=== PATIENT | male | born 1965 | race Caucasian/White ===

== ENCOUNTER 2022-07-25 12:41 | Inpatient (IN) | payer OTHER ==
[2022-07-25 13:17] LABS: Absolute Lymphocytes (CBC) 1.2 K/uL (0.7-4.9); Hematocrit 34.4 % (39.6-49.0); Lymphocytes % 17.1 % (15.3-44.8); MCV 95.2 fL (80-100); MPV 8.2 fL (7.6-11.3); RBC Red Blood Cell Count 3.61 M/uL (4.33-5.43)
--- NOTE | 2022-07-25 13:41 | RAD REPORT ---
EXAM DESCRIPTION: RAD - Chest Single View - 07/25/2022 1:27 pm CLINICAL HISTORY: tachycaradia, SOB Chest pain. COMPARISON: No comparisons FINDINGS: Portable technique limits examination quality. The lungs are grossly clear. The heart is normal in size. No displaced fractures.Sternotomy wires. IMPRESSION: No acute intrathoracic process suspected.
[2022-07-25 13:58] LABS: Potassium 3.7 mmol/L (3.5-5.1)
[2022-07-25 14:05] LABS: Troponin High Sensitivity 116.9 pg/mL (<58.9)
[2022-07-25 14:06] LABS: Magnesium 1.3 mg/dL (1.6-2.4)
[2022-07-25] MEDS ORDERED: ASPIRIN 325 MG TAB ONE (14:59)
--- NOTE | 2022-07-25 15:10 | RAD REPORT ---
EXAM DESCRIPTION: CT - Chest For Pe Angio - 07/25/2022 2:59 pm CLINICAL HISTORY: Chest pain. tachycardia, pos d dimer COMPARISON: No comparisons TECHNIQUE: CT angiogram of the pulmonary arteries was performed with MIP. All CT scans are performed using dose optimization technique as appropriate and may include automated exposure control or mA/KV adjustment according to patient size. FINDINGS: No evidence of pulmonary thromboembolism. No acute aortic finding demonstrated. The lungs are clear. No significant pericardial or pleural fluid. No concerning bony finding. Sternotomy wires. IMPRESSION: No evidence of pulmonary thromboembolism. No acute lung findings.
--- NOTE | 2022-07-25 15:41 | ER ---
Nurse's Notes [facility] Name: Marcial Ritter Jr Age: 57 yrs Sex: Male : 1965 Arrival Date: 07/25/2022 Time: 12:43 Bed 26 Private MD: Diagnosis: Tachycardia, unspecified;Lightheaded Presentation: 07/25 13:01 Chief complaint: Patient states: Blood pressure fluctuating, low systolic at 70. jl7 Coronavirus screen: Vaccine status: Patient reports receiving the 2nd dose of the covid vaccine. At this time, the client does not indicate any symptoms associated with coronavirus-19. Ebola Screen: No symptoms or risks identified at this time. Initial Sepsis Screen: Does the patient meet any 2 criteria? No. Patient's initial sepsis screen is negative. Does the patient have a suspected source of infection? No. Patient's initial sepsis screen is negative. Risk Assessment: Do you want to hurt yourself or someone else? Patient reports no desire to harm self or others. Onset of symptoms was July 20, 2022. 13:01 Method Of Arrival: Ambulatory [facility] 13:01 Acuity: ARMIN 3 jl7 Triage Assessment: 13:04 General: Appears in no apparent distress. uncomfortable, Behavior is calm, cooperative, jl7 appropriate for age. Pain: Denies pain. Respiratory: Reports shortness of breath Onset: The symptoms/episode began/occurred gradually, the patient has mild shortness of breath. Historical: - Allergies: 13:04 No Known Allergies; jl7 - PMHx: 13:04 Hypertensive disorder; jl7 - PSHx: 13:04 Coronary artery bypass graft; jl7 - Immunization history:: Client reports receiving the 2nd dose of the Covid vaccine. - Social history:: Smoking status: Patient reports the use of cigarette tobacco products, Patient uses alcohol, on a daily basis. Screenin:00 [facility] ED Fall Risk Assessment (Adult) History of falling in the last 3 months, bp including since admission No falls in past 3 months (0 pts). Abuse screen: Denies threats or abuse. Denies injuries from another. Nutritional screening: No deficits noted. Tuberculosis screening: No symptoms or risk factors identified. Assessment: 14:45 General: SEE TRIAGE NOTE. bp 15:04 Reassessment: PT RETURNED FROM CT. bp 16:28 Reassessment: ADMIT INITIATED. Cardiovascular: Rhythm is sinus rhythm. Respiratory: bp Airway is patent Respiratory effort is even, unlabored, Breath sounds are coarse bilaterally. Vital Signs: 13:01 BP 139 / 97; Pulse 113; Resp 19; Temp 97.8; Pulse Ox 100% ; Weight 80.74 kg; Height 6 bp ft. 2 in. (187.96 cm); Pain 0/10; 15:05 BP 158 / 100; Pulse 118; Resp 16; Pulse Ox 100% ; bp 16:28 BP 137 / 92; Pulse 98; Resp 16; Pulse Ox 100% ; bp 13:01 Body Mass Index 22.85 (80.74 kg, 187.96 cm) bp ED Course: 12:43 Patient arrived in ED. as 12:44 Juan F Santana DO is Attending Physician. ms3 13:04 Triage completed. jl7 13:04 Arm band placed on right wrist. jl7 13:15 Initial lab(s) drawn, by me, sent to lab. EKG done, by ED staff. Inserted saline lock: tm3 20 gauge in left antecubital area, using aseptic technique. 14:49 Eliel Verdin, RN is Primary Nurse. bp 15:00 Patient has correct armband on for positive identification. Bed in low position. Call bp light in reach. Side rails up X2. 15:28 Basic Metabolic Panel Sent. bp 15:28 CBC with Diff Sent. bp 15:28 Troponin HS Sent. bp 15:28 Magnesium Sent. bp 15:28 NT PRO-BNP Sent. bp 15:28 D-Dimer Sent. bp 15:28 CT Chest For PE Angio Sent. bp 15:28 XRAY Chest (1 view) Sent. bp 15:41 Breezy Silva MD is Hospitalizing Provider. ms3 17:23 COVID swab sent to lab. tm3 17:56 No provider procedures requiring assistance completed. Patient admitted, IV remains in bp place. 18:59 SARS-COV-2 Antigen Rapid Sent. jl7 19:22 Primary Nurse role handed off by Eliel Verdin, RN mw2 07/26 07:36 Eliel Verdin, RN is Primary Nurse. bp Administered Medications: 07/25 15:00 Drug: Aspirin 325 mg Route: PO; bp 16:27 Follow up: Response: No adverse reaction bp Medication: 17:56 VIS not applicable for this client. bp Outcome: 15:41 Decision to Hospitalize by Provider. ms3 17:56 Admitted to ER Hold. Please see [facility] for further documentation. bp 17:56 Condition: stable 17:56 Instructed on the need for admit. 07/26 18:50 Patient left the ED. bp Signatures: Isiah Marcelo tm3 Lise Rebollar Jahala RN RN jl7 Eliel Verdin RN RN bp Violeta Khan mw2 Juan F Santana DO DO ms3 Corrections: (The following items were deleted from the chart) 07/25 13:04 13:04 PMHx: Diabetes mellitus; jl7 jl7 15:03 14:30 General: SEE TRIAGE NOTE. bp bp 15:04 15:00 General: SEE TRIAGE NOTE. bp bp 07/26 17:08 07/25 13:01 BP 139 / 97; Pulse 113bpm; Resp 19bpm; Pulse Ox 100%; Temp 97.8F; 80.74 kg; bp Height 6 ft. 2 in.; BMI: 22.8; Pain 0/10; jl7
--- NOTE | 2022-07-25 15:41 | EDPHYS ---
Physician Documentation [facility] Name: Marcial Rittre Jr Age: 57 yrs Sex: Male : 1965 Arrival Date: 07/25/2022 Time: 12:43 Bed 26 Private MD: ED Physician Juna F Santana HPI: 07/25 13:01 This 57 yrs old Male presents to ER via Unassigned with complaints of Shortness Of ms3 Breath, Irregular Pulse, Blood Pressure Problem. 13:01 57-year-old male with past medical history of coronary artery disease, hypertension, ms3 hyperlipidemia presents for hypotension and tachycardia. Patient states last week he noticed blood pressure to be 77/53 while he was off of his blood pressure medications. Patient states yesterday and today he noticed his heart rate to be greater than 110. Patient endorses shortness of breath, nausea, vomiting. Patient states when standing he becomes lightheaded. Patient denies pain. Patient denies alleviating factors. Historical: - Allergies: 13:04 No Known Allergies; jl7 - PMHx: 13:04 Hypertensive disorder; jl7 - PSHx: 13:04 Coronary artery bypass graft; jl7 - Immunization history:: Client reports receiving the 2nd dose of the Covid vaccine. - Social history:: Smoking status: Patient reports the use of cigarette tobacco products, Patient uses alcohol, on a daily basis. ROS: 13:02 Constitutional: Negative for fever, and chills. Neck: Negative for injury, pain, and ms3 swelling, Cardiovascular: Negative for chest pain, and palpitations. 13:02 Skin: Negative for injury, rash, and discoloration. 13:02 Respiratory: Positive for shortness of breath. 13:02 All other systems are negative. Exam: 13:02 Constitutional: This is a well developed, well nourished patient who is awake, alert, ms3 and in no acute distress. Head/Face: Normocephalic, atraumatic. Neck: Trachea midline, no cervical lymphadenopathy. Supple, full range of motion without nuchal rigidity, or vertebral point tenderness. No Meningismus. Chest/axilla: Normal chest wall appearance and motion. Nontender with no deformity. Respiratory: Lungs have equal breath sounds bilaterally, clear to auscultation and percussion. No rales, rhonchi or wheezes noted. No increased work of breathing, no retractions or nasal flaring. Skin: Warm, dry with normal turgor. Normal color with no rashes, no lesions, and no evidence of cellulitis. MS/ Extremity: Pulses equal, no cyanosis. Neurovascular intact. Full, normal range of motion. 13:02 Cardiovascular: Rate: tachycardic, Rhythm: regular, Pulses: no pulse deficits are appreciated, Heart sounds: normal. 15:32 ECG was reviewed by the Attending Physician. ms3 Vital Signs: 13:01 BP 139 / 97; Pulse 113; Resp 19; Temp 97.8; Pulse Ox 100% ; Weight 80.74 kg; Height 6 bp ft. 2 in. (187.96 cm); Pain 0/10; 15:05 BP 158 / 100; Pulse 118; Resp 16; Pulse Ox 100% ; bp 16:28 BP 137 / 92; Pulse 98; Resp 16; Pulse Ox 100% ; bp 13:01 Body Mass Index 22.85 (80.74 kg, 187.96 cm) bp MDM: 12:52 Patient medically screened. ms3 13:02 Differential diagnosis: Anemia CHF exacerbation, Myocardial Infarction pneumonia, ms3 Pulmonary Embolism. 14:26 Management of patient was discussed with the following: Power Press Supervisor: Discussed with Dr herminio Mckeon. Does not want heparin at this time. Would like Troponins trended.. 16:27 Data reviewed: vital signs, nurses notes, lab test result(s), EKG, radiologic studies, ms3 and as a result, I will admit patient. Consideration of Admission/Observation Patient was admitted/placed on observation. Independent interpretation of the following test(s) in the Emergency Department EKG: See my EKG interpretation above manager monitoring: rate is 108 beats/min, Rhythm is normal sinus rhythm, regular, with no ectopy, Interpretation: normal rhythm, tachycardia. Counseling: I had a detailed discussion with the patient and/or guardian regarding: the historical points, exam findings, and any diagnostic results supporting the discharge/admit diagnosis, lab results, radiology results, the need for further work-up and treatment in the hospital. ED course: Discussed case with Dr. Silva and he accepts patient as inpatient. All questions were answered. Discussed plan for admission with patient he understands and agrees with plan. 07/25 12:51 Order name: Basic Metabolic Panel ms3 07/25 12:51 Order name: CBC with Diff ms3 07/25 12:51 Order name: D-Dimer ms3 07/25 12:51 Order name: Magnesium ms3 07/25 12:51 Order name: NT PRO-BNP ms3 07/25 12:51 Order name: Troponin HS ms3 07/25 13:17 Order name: CBC with Automated Diff; Complete Time: 15:38 EDMS 07/25 13:22 Order name: D-Dimer; Complete Time: 15:38 EDMS 07/25 14:06 Order name: Basic Metabolic Panel; Complete Time: 15:38 EDMS 07/25 14:06 Order name: Troponin High Sensitivity; Complete Time: 15:38 EDMS 07/25 14:06 Order name: NT PRO-BNP; Complete Time: 15:38 EDMS 07/25 14:06 Order name: Magnesium; Complete Time: 15:38 EDMS 07/25 16:34 Order name: SARS-COV-2 Antigen Rapid bd 07/25 17:55 Order name: SARS-COV-2 Antigen Rapid; Complete Time: 17:58 EDMS 07/25 19:36 Order name: Troponin High Sensitivity EDMS 07/25 19:41 Order name: Protime (+INR) EDMS 07/25 19:48 Order name: Phosphorus EDMS 07/25 19:48 Order name: Creatine Phosphokinase EDMS 07/25 19:48 Order name: Lipid Profile EDMS 07/25 19:48 Order name: T4 Free EDMS 07/25 19:48 Order name: Magnesium EDMS 07/25 19:48 Order name: Thyroid Stimulating Hormone EDMS 07/25 21:05 Order name: Hemoglobin A1c EDMS 07/26 01:26 Order name: Troponin High Sensitivity EDMS 07/26 03:02 Order name: CBC with Automated Diff EDMS 07/26 03:12 Order name: Basic Metabolic Panel EDMS 07/26 03:12 Order name: Uric Acid EDMS 07/26 03:12 Order name: Magnesium EDMS 07/26 03:20 Order name: Osmolality, Serum EDMS 07/26 03:21 Order name: Cortisol EDMS 07/25 12:51 Order name: XRAY Chest (1 view) ms3 07/25 12:51 Order name: EKG; Complete Time: 12:52 ms3 07/25 12:51 Order name: Cardiac monitoring; Complete Time: 13:25 ms3 07/25 12:51 Order name: EKG - Nurse/Tech; Complete Time: 13:25 ms3 07/25 12:51 Order name: IV Saline Lock; Complete Time: 13:25 ms3 07/25 12:51 Order name: Labs collected and sent; Complete Time: 13:25 ms3 07/25 12:51 Order name: O2 Per Protocol; Complete Time: 14:50 ms3 07/25 12:52 Order name: O2 Sat Monitoring; Complete Time: 14:50 ms3 07/25 13:42 Order name: RAD; Complete Time: 15:38 EDMS 07/25 14:26 Order name: CT Chest For PE Angio ms3 07/25 15:10 Order name: CT; Complete Time: 15:38 EDMS EC:32 Rate is 105 beats/min. Rhythm is regular. QRS Rolfe is Normal. VA interval is normal. ms3 QRS interval is normal. Clinical impression: NSR w/ Non-specific ST/T Changes. Interpreted by me. Reviewed by me. Administered Medications: 15:00 Drug: Aspirin 325 mg Route: PO; bp 16:27 Follow up: Response: No adverse reaction bp Disposition Summary: 07/25/22 15:41 Hospitalization Ordered Hospitalization Status: Inpatient Admission ms3 Provider: Breezy Silva ms3 Condition: Stable ms3 Problem: new ms3 Symptoms: are unchanged ms3 Bed/Room Type: Standard ms3 Location: Telemetry/MedSurg (Inpatient)(07/26/22 17:43) bd Room Assignment: 219(07/26/22 17:43) bd Diagnosis - Tachycardia, unspecified ms3 - Lightheaded ms3 Forms: - Medication Reconciliation Form ms3 - SBAR form ms3 Signatures: Dispatcher [employer] EDMS Madeleine Lopez Jahala, RN RN jl7 Eliel Verdin, RN RN bp Juan F Santana DO DO ms3 Corrections: (The following items were deleted from the chart) 13:04 13:04 PMHx: Diabetes mellitus; jl7 jl7 15:35 13:44 ECG was reviewed by the Attending Physician. ms3 ms3 15:35 13:44 Rate is 114 beats/min. Rhythm is regular. QRS Rolfe is Normal. VA interval is ms3 normal. QRS interval is normal. Clinical impression: NSR w/ Non-specific ST/T Changes. Interpreted by me. Reviewed by me. ms3 17: 15:41 Telemetry/MedSurg (Inpatient) ms3 bp 17: 15:41 ms3 bp 07/26 17:43 07/25 17:29 [facility] ER HOLD bp bd 07/26 17:43 07/25 17:29 ERHOLD- bp bd
[2022-07-25] MEDS ORDERED: ACETAMINOPHEN 325 MG TABLET PO PRN (16:31)
[2022-07-25] MEDS ORDERED: ONDANSETRON 4 MG/2 ML VIAL IV PRN (16:35)
--- NOTE | 2022-07-25 16:38 | P.HP ---
Certification for Inpatient Patient admitted to: Observation With expected LOS: <2 Midnights Patient will require the following post-hospital care: None Practitioner: I am a practitioner with admitting privileges, knowledge of patient current condition, hospital course, and medical plan of care. Services: Services provided to patient in accordance with Admission requirements found in Title 42 Section 412.3 of the Code of Federal Regulations Patient History Date of Service: 07/25/22 Reason for admission: Tachycardia and palpitations. History of Present Illness: Patient is a 57-year-old male with a past medical history significant for hypertension, CABG, alcohol abuse, nicotine dependence, HLD who presents with complaint of hypotension and tachycardia. Patient reported that his blood pressure has been unstable and last week systolic blood pressure dropped into the 70s. Patient reported associated signs and symptoms of palpitation, lig htheadedness, cough, poor appetite and shortness of breath. Patient denies any other signs and symptoms. Symptoms are aggravated or relieved by nothing. Patient decided to present to the hospital for medical evaluation. Allergies No Known Allergies Allergy (Unverified 07/25/22 18:33) Home Medications: Amlodipine [Norvasc] 10 mg PO DAILY 07/25/22 Apixaban [Eliquis] 5 mg PO DAILY 07/25/22 Aspirin [Aspirin EC 81 MG] 81 mg PO DAILY 07/25/22 hydroCHLOROthiazide [Hydrochlorothiazide] 25 mg PO DAILY 07/25/22 lisinopriL [Lisinopril] 10 mg PO DAILY 07/25/22 - Past Medical/Surgical History -: HTN -: Nicotine dependence -: HLD -: Alcohol abuse -: CABG - Family History Family History: Reviewed- Non-Contributory - Social History Smoking Status: Current every day smoker Counseled patient to stop smoking for: less than 10 minutes Smoking therapy provided: Yes Patient receptive to therapy: Yes Alcohol use: Yes CD- Drugs: No Caffeine use: Yes Place of Residence: Home Review of Systems General: Other (Poor appetite) Eyes: Unremarkable ENT: Unremarkable Respiratory: Cough, Shortness of Breath Cardiovascular: Palpitations, Light Headedness, Other (Elevated heart rate) Gastrointestinal: Unremarkable Genitourinary: Unremarkable Musculoskeletal: Unremarkable Integumentary: Unremarkable Neurological: Other (Lightheadedness) Lymphatics: Unremarkable Physical Examination - Physical Exam General: Alert, In no apparent distress, Oriented x3, Cooperative HEENT: Atraumatic, PERRLA, Mucous membr. moist/pink, EOMI, Sclerae nonicteric Neck: Supple, 2+ carotid pulse no bruit, No LAD, Without JVD or thyroid abnormality Respiratory: Clear to auscultation bilaterally, Normal air movement Cardiovascular: No edema, Regular rate/rhythm, Normal S1 S2 Capillary refill: <2 Seconds Gastrointestinal: Normal bowel sounds, Soft and benign, No tenderness Musculoskeletal: No clubbing, No swelling, No contractures, No tenderness Integumentary: No rashes, No significant lesion, No tenderness/swelling Neurological: Normal speech, Normal tone, Normal affect Lymphatics: No axilla or inguinal lymphadenopathy - Studies Laboratory Data (last 24 hrs) 07/25/22 13:05: WBC 7.20, Hgb 12.0 L, Hct 34.4 L, Plt Count 170 07/25/22 13:05: Sodium 125 L, Potassium 3.7, BUN 35 H, Creatinine 2.61 H, Glucose 162 H, Magnesium 1.3 L* Assessment and Plan - Plan --Tachycardia\palpitations. Echocardiogram to assess cardiac functions and structures. Telemetry to monitor for any significant arrhythmia. Cardiology consulted. Further management per product engineer. --Elevated troponin. Will trend troponin levels. Echocardiogram pending. Telemetry to monitor for any significant arrhythmia. Further management per product engineer. --History of CABG. Continue aspirin and statin. --HLD. Continue statin. --Nicotine dependence. Patient counseled on tobacco cessation. Refuses nicotine patch. -- Alcohol abuse. Patient denies withdrawal symptoms when he does not drink. Alcohol withdrawal assessment protocol. --CKD 4. Baseline functions unknown. Nephrology consulted. Will await further recommendation. --Hyponatremia. Likely secondary to alcohol abuse. Human Resources Benefits Manager on board. Further management per tire repairer. -- Elevated D-dimer. CT PE protocol negative for PE. Continue supportive care. --- Hypomagnesemia. Replete as needed. -- Anemia of chronic disease. H&H stable. We will continue to monitor hemoglobin and transfuse if less than 7.0. --Hypertension. Stable. Continue home medications -- DVT prophylaxis with Lovenox subQ. Discharge Plan: Home Plan to discharge in: 48 Hours - Advance Directives Does patient have a Living Will: No Does patient have a Durable POA for Healthcare: No - Code Status/Comfort Care Code Status Assessed: Yes Physician Review: Patient Assessed, Agree with Above Assessment and Plan Critical Care: No
[2022-07-25] MEDS ORDERED: LABETALOL 20 MG/4ML SYRINGE IV PRN (16:39)
[2022-07-25] MEDS: ENOXAPARIN 40 MG/0.4 ML SQ SCH (17:00)
[2022-07-25 17:55] LABS: SARS-CoV-2 Antigen Rapid Res Negative (Negative)
[2022-07-25] MEDS: ASPIRIN 81 MG CHEWABLE TABLET PO SCH (18:00)
[2022-07-25 18:07] VITALS: BMI 22.8
[2022-07-25] MEDS ORDERED: ENOXAPARIN 40 MG/0.4 ML SQ ONE (18:31)
[2022-07-25 19:41] LABS: Protime INR 1.21
[2022-07-25 19:46] LABS: Phosphorus 2.7 mg/dL (2.5-4.9); Thyroid Stimulating Hormone 2.28 uIU/mL (0.358-3.740)
[2022-07-25 19:48] LABS: Magnesium 1.4 mg/dL (1.6-2.4)
[2022-07-25] MEDS ORDERED: MAGNESIUM SULFATE 1 gm IVPB 1 GM/100 ML BAG IV ONE ×2 (19:53→22:03)
[2022-07-25] MEDS: SODIUM CHLORIDE 1 GM TAB PO SCH ×2 (20:40→21:40)
[2022-07-25] MEDS: ATORVASTATIN 40 MG TAB PO SCH (21:00)
[2022-07-25] MEDS: FOLIC ACID 1 MG TABLET PO SCH (21:00)
[2022-07-25] MEDS: THIAMINE HCL 100 MG TABLET PO SCH (21:00)
[2022-07-25] MEDS ORDERED: FOLIC ACID 1 MG TABLET ONE (22:03)
[2022-07-25] MEDS ORDERED: ATORVASTATIN 20 MG TAB ONE (23:47)
[2022-07-26] MEDS ORDERED: THIAMINE HCL 100 MG TABLET ONE ×2 (00:32→10:20)
[2022-07-26 03:01] LABS: Absolute Lymphocytes (CBC) 1.2 K/uL (0.7-4.9); Hematocrit 32.8 % (39.6-49.0); Lymphocytes % 21.6 % (15.3-44.8); MCV 95.4 fL (80-100); MPV 8.2 fL (7.6-11.3); RBC Red Blood Cell Count 3.44 M/uL (4.33-5.43)
[2022-07-26 03:11] LABS: Magnesium 1.9 mg/dL (1.6-2.4); Potassium 3.6 mmol/L (3.5-5.1); Uric Acid 9.7 mg/dL (3.5-7.2)
[2022-07-26] MEDS: THIAMINE HCL 100 MG TABLET PO SCH ×2 (09:00→21:17)
[2022-07-26] MEDS: ENOXAPARIN 40 MG/0.4 ML SQ SCH (09:00)
[2022-07-26] MEDS ORDERED: SODIUM CHLORIDE 1 GM TAB PO SCH (09:00)
[2022-07-26] MEDS: ASPIRIN 81 MG CHEWABLE TABLET PO SCH (09:00)
[2022-07-26] MEDS: FOLIC ACID 1 MG TABLET PO SCH ×2 (09:00→21:17)
[2022-07-26] MEDS ORDERED: AMLODIPINE 10 MG TAB PO SCH (09:00)
[2022-07-26] MEDS: NA CHLORIDE 0.9% 1,000 ML IV SCH ×2 (09:00→19:00)
--- NOTE | 2022-07-26 10:04 | P.CNS ---
Date of Consult: 07/26/22 Reason for Consult: PRAVEEN, hyponatremia Requesting Physician: Rishabh Joyce Chief Complaint: Tachycardia and palpitations. History of Present Illness: Patient is a 57-year-old male with a past medical history significant for hypertension on several medications, CABG, nicotine dependence and HLD who presented with complaints of recurrent low BP and pre-syncopal episodes over the past week. Pt has had palpitations, lightheadedness and other. He and his have had a recent cold with cough, poor appetite and some nasal drainage. Pt on admission showed evidence of PRAVEEN, hyponatemia, hypomagnesemia and other. Pt feels better now post IVF hydration and denies any further orthostatic symptoms or other. Allergies No Known Allergies Allergy (Unverified 07/25/22 18:33) Home Medications: Amlodipine [Norvasc] 10 mg PO DAILY 07/25/22 Apixaban [Eliquis] 5 mg PO DAILY 07/25/22 Aspirin [Aspirin EC 81 MG] 81 mg PO DAILY 07/25/22 hydroCHLOROthiazide [Hydrochlorothiazide] 25 mg PO DAILY 07/25/22 lisinopriL [Lisinopril] 10 mg PO DAILY 07/25/22 - Past Medical/Surgical History Diabetic: No -: HTN -: Nicotine dependence -: HLD -: Alcohol abuse -: CABG - Social History Alcohol use: Yes CD- Drugs: No Caffeine use: Yes Place of Residence: Home Review of Systems General: As per HPI Eyes: Unremarkable ENT: Nose Discharge Respiratory: Cough, As per HPI Cardiovascular: Light Headedness, As per HPI Gastrointestinal: Unremarkable Genitourinary: Unremarkable Musculoskeletal: Unremarkable Integumentary: Unremarkable Neurological: Unremarkable Lymphatics: Unremarkable Physical Examination Temp Pulse Resp BP Pulse Ox 98.9 F 90 13 101/64 100 07/26/22 04:00 07/26/22 08:00 07/26/22 08:00 07/26/22 08:00 07/26/22 08:00 General: Alert, In no apparent distress, Oriented x3 HEENT: Atraumatic, Normocephalic Neck: Supple Respiratory: Clear to auscultation bilaterally, Normal air movement Cardiovascular: No edema, Regular rate/rhythm, Normal S1 S2 Gastrointestinal: Soft and benign, Non-distended, No tenderness Musculoskeletal: No clubbing, No swelling Integumentary: No rashes, No breakdown Neurological: Normal speech, Normal tone, Normal affect Laboratory Data (last 24 hrs) 07/25/22 13:05: WBC 7.20, Hgb 12.0 L, Hct 34.4 L, Plt Count 170 07/25/22 13:05: Sodium 125 L, Potassium 3.7, BUN 35 H, Creatinine 2.61 H, Glucose 162 H, Magnesium 1.3 L* Conclusions/Impression: A/P) 1. Stage II PRAVEEN in the setting of pre-renal state, hypotension, concurrent ACEi/thiazide diuretic use, other -Cr level downward trending post hydration. Urine studies pending. Cont to hold Lisinopril and HCTZ both during admission and on discharge 2. Hypovolemic hyponatremia in the setting of volume depletion, thiazide diuretic use and reduced PO intake -Na level higher on isotonic IVF, cont hydration 3. Hypotension related to meds and hypovolemia -cont hydration with NS IVF. Hold ACEi and thiazide diuretic on discharge, lower CCB and give pt holding parameter, have pt monitor BP closely at home and meds can be resumed as indicated over the following weeks 4. NSTEMI, mild troponin leak, downward trending -hx of atherosclerosis of [place] coronary arteries without reports of anginal pectoris, w/u and plan per Cardiology Jonas Weiss MD, CARROL
[2022-07-26] MEDS ORDERED: FOLIC ACID 1 MG TABLET ONE (10:20)
[2022-07-26] MEDS ORDERED: ASPIRIN EC 81 MG TAB PO ONE (10:20)
[2022-07-26] MEDS ORDERED: ENOXAPARIN 40 MG/0.4 ML SQ ONE (10:21)
[2022-07-26] MEDS ORDERED: AMLODIPINE 10 MG TAB ONE (10:21)
[2022-07-26] MEDS ORDERED: NA CHLORIDE 0.9% 1,000 ML ONE (10:21)
--- NOTE | 2022-07-26 13:00 | EKG ---
Test Date: 2022-07-25 Test Time: 13:14:14 Contract Technical Writer: TM MEASUREMENT RESULTS: Intervals: Rate: 114 KS: 162 QRSD: 98 QT: 328 QTc: 452 Henry: P: 82 KS: 162 QRS: 56 T: 215 INTERPRETIVE STATEMENTS: Sinus tachycardia Inferior infarct, age undetermined ST & T wave abnormality, consider anterolateral ischemia Abnormal ECG No previous ECG available for comparison Electronically Signed On 07-26-22 12:58:36 AUTO EMISSIONS TECHNICIAN by Aly Mckeon
--- NOTE | 2022-07-26 16:02 | P.PN ---
Date of Service: 07/26/22 Subjective: continues with palpitations, no significant improvement of symptoms renal function and hyponatremia improved no chest pain ROS: 10 point ROS as noted above, otherwise negative Physical exam GEN: Alert, oriented, NAD HEENT: Normal conjunctiva, sclera anicteric CV: tachycardia, irregular , no edema Pulm: Non-labored respirations on room air ABD: Soft, nontender, nondistended Neuro: Normal speech, normal affect Problem List Palpitations/tachycardia NSTEMI CAD s/p CABG h/o afib, s/p ablation Nicotine dependence, alcohol dependence PRAVEEN on CKD3 Hyponatremia Hypertension Continues with palpitations Heart rate [id number] h/o afib s/p ablation elevated troponin, likely demand ischemia Cardiology consulted hyponatremia PRAVEEN suspect secondary to medications and pre-renal pt with several days of decreased PO intake dc HTCTZ and lisinopril received IV contrast from CTA repeat labs in AM nephrology consulted IV started VTE: home eliquis Code: full Dispo: home, tomorrow if improved renal function / heart rate / blood pressure
[2022-07-26] MEDS: ATORVASTATIN 40 MG TAB PO SCH (21:17)
[2022-07-27] MEDS: NA CHLORIDE 0.9% 1,000 ML IV SCH ×2 (02:04→05:00)
[2022-07-27 03:50] LABS: Magnesium 1.7 mg/dL (1.6-2.4); Phosphorus 2.7 mg/dL (2.5-4.9); Potassium 3.6 mmol/L (3.5-5.1)
[2022-07-27] MEDS ORDERED: MAGNESIUM SULFATE 1 gm IVPB 1 GM/100 ML BAG IV ONE (04:05)
--- NOTE | 2022-07-27 07:52 | EKG ---
Test Date: 2022-07-25 Test Time: 14:52:52 Energy Efficiency Engineer: NAYLA MEASUREMENT RESULTS: Intervals: Rate: 105 AL: 170 QRSD: 92 QT: 368 QTc: 486 [place]: P: 75 AL: 170 QRS: 69 T: 189 INTERPRETIVE STATEMENTS: Sinus tachycardia with premature atrial complexes with aberrant conduction Cannot rule out Inferior infarct, age undetermined ST & T wave abnormality, consider lateral ischemia Abnormal ECG Compared to ECG 07/25/2022 13:14:14 Atrial premature complex(es) now present Aberrant conduction of supraventricular beat(s) now present Myocardial infarct finding still present ST (T wave) deviation still present Possible ischemia still present Electronically Signed On 07-27-22 07:51:06 DRIVER MATERIAL HANDLER by Aly Mckeon
[2022-07-27 08:28] VITALS: BP 124/93; TEMP 98.1
[2022-07-27] MEDS: THIAMINE HCL 100 MG TABLET PO SCH (08:31)
[2022-07-27] MEDS: FOLIC ACID 1 MG TABLET PO SCH (08:31)
[2022-07-27] MEDS: ASPIRIN 81 MG CHEWABLE TABLET PO SCH (08:31)
[2022-07-27] MEDS: ENOXAPARIN 40 MG/0.4 ML SQ SCH (08:32)
[2022-07-27] MEDS ORDERED: POTASSIUM CL SA 10 MEQ TAB PO ONE (09:00)
[2022-07-27] MEDS ORDERED: AMLODIPINE 5 MG TAB PO SCH (09:00)
[2022-07-27] MEDS ORDERED: METOPROLOL TAR 25 MG TAB PO ONE (09:00)
[2022-07-27 09:46] VITALS: O2SAT 100
--- NOTE | 2022-07-27 22:46 | P.DS ---
Admission Date: 07/25/22 Discharge Date: 07/27/22 Disposition: ROUTINE DISCHARGE Discharge Condition: GOOD Reason for Admission: Tachycardia and palpitations. Consultations: Cardiology - Dr. Mckeon Nephrology - Dr. Weiss Brief History of Present Illness: 57yo M, PMH: HTN, CABG, alcohol abuse, nictoine dependence, HLD. Presented with hypotension and tachycardia. Patient reported that his blood pressure has been unstable and last week systolic blood pressure dropped into the 70s. Patient reported associated signs and symptoms of palpitation, lightheadedness, cough, poor appetite and shortness of breath. Patient denies any other signs and symptoms. Hospital Course: Problem List Palpitations/tachycardia NSTEMI, demand ischemia PRAVEEN on CKD3, secodnaryt o prerenal / hypovolemia CAD s/p CABG h/o afib, s/p ablation Nicotine dependence, alcohol dependence Hyponatremia Hypertension Patient presented with palpitations, low blood pressure. Found to be dehydrated with acute kidney injury. His symptoms and bloodwork /renal function improved with IV hydration. His blood pressure remained in normal range on 5mg norvasc (decreased from home 10mg). Lisinopril and HCTZ were discontinued. Patient had a 4 minute run of SVT, asymptomatic, overnight. Discussed with Dr. Mckeon, stable for discharge home. Patient to be started on metoprolol 25mg BID Follow up: Dr. Weiss - next week, call his office to confirm appointment Dr. Mckeon, in ~2 weeks. Vital Signs/Physical Exam: Temp Pulse Resp BP Pulse Ox 98.1 F 87 14 124/93 H 100 07/27/22 08:00 07/27/22 09:41 07/27/22 08:00 07/27/22 09:41 07/27/22 08:00 General: Alert, In no apparent distress, Oriented x3 HEENT: EOMI, Sclerae nonicteric Neck: Supple, No LAD Respiratory: Clear to auscultation bilaterally, Normal air movement Cardiovascular: No edema, Regular rate/rhythm Gastrointestinal: Soft and benign, No tenderness Musculoskeletal: No contractures, No tenderness Integumentary: No significant lesion, No tenderness/swelling Neurological: Normal speech, Normal strength at 5/5 x4 extr, Normal affect Laboratory Data at Discharge: WBC 5.60 K/uL (4.3-10.9) 07/26/22 02:33 Hgb 11.6 g/dL (13.6-17.9) L 07/26/22 02:33 Hct 32.8 % (39.6-49.0) L 07/26/22 02:33 Plt Count 156 K/uL (152-406) 07/26/22 02:33 PT 13.3 SECONDS (9.5-12.5) H 07/25/22 18:56 INR 1.21 07/25/22 18:56 Sodium 132 mmol/L (136-145) L 07/27/22 02:27 Potassium 3.6 mmol/L (3.5-5.1) 07/27/22 02:27 BUN 31 mg/dL (7-18) H 07/27/22 02:27 Creatinine 1.66 mg/dL (0.70-1.30) H 07/27/22 02:27 Glucose 117 mg/dL (74-106) H 07/27/22 02:27 Uric Acid 9.7 mg/dL (3.5-7.2) H 07/26/22 02:33 Phosphorus 2.7 mg/dL (2.5-4.9) 07/27/22 02:27 Magnesium 1.7 mg/dL (1.6-2.4) 07/27/22 02:27 Triglycerides 67 mg/dL (<150) 07/25/22 18:56 Cholesterol 170 mg/dL (<200) 07/25/22 18:56 HDL Cholesterol 71 mg/dL (40-60) H 07/25/22 18:56 Cholesterol/HDL Ratio 2.39 07/25/22 18:56 Home Medications: Apixaban [Eliquis] 5 mg PO DAILY 07/25/22 Aspirin [Aspirin EC 81 MG] 81 mg PO DAILY 07/25/22 Amlodipine [Norvasc*] 5 mg PO DAILY 30 Days #30 tab 07/27/22 Metoprolol Tartrate [Lopressor] 25 mg PO BID 30 Days #60 tab 07/27/22 New Medications: Metoprolol Tartrate [Lopressor] 25 mg PO BID 30 Days #60 tab Amlodipine [Norvasc*] 5 mg PO DAILY 30 Days #30 tab Physician Discharge Instructions: Patient presented with palpitations, low blood pressure. Found to be dehydrated with acute kidney injury. His symptoms and bloodwork /renal function improved with IV hydration. His blood pressure remained in normal range on 5mg norvasc (decreased from home 10mg). Lisinopril and HCTZ were discontinued. Patient had a 4 minute run of SVT, asymptomatic, overnight. Discussed with tawnya Barajas for discharge home. Patient to be started on metoprolol 25mg BID Follow up: Dr. Weiss - next week, call his office to confirm appointment Dr. Mckeon, in ~2 weeks. Followup: Jonas Weiss [ACTIVE - CAN ADMIT] - (Call to schedule appointment. ) Aly Mcekon MD [Primary Care Provider] - (Call to schedule appointment. ) Time spent managing pt's care (in minutes): 45
== END 2022-07-27 10:34 | disposition home or self-care (01) | DRG 682 ==
LOC: ER 12:41 → ERHOLD 16:28 → 2ND 07-26 18:23
PROVIDERS: ADMIT Hospitalist; ATTEND Hospitalist
DX: N17.9 Acute kidney failure, unspecified (principal); I21.A1 Myocardial infarction type 2; E87.1 Hypo-osmolality and hyponatremia; I12.9 Hypertensive chronic kidney disease with stage 1 through stage 4 chronic kidney disease, or unspecified chronic kidney disease; N18.30 Chronic kidney disease, stage 3 unspecified; E78.5 Hyperlipidemia, unspecified; E83.42 Hypomagnesemia; D63.8 Anemia in other chronic diseases classified elsewhere; I25.10 Atherosclerotic heart disease of native coronary artery without angina pectoris; F10.20 Alcohol dependence, uncomplicated; F17.210 Nicotine dependence, cigarettes, uncomplicated; R79.89 Other specified abnormal findings of blood chemistry; R77.8 Other specified abnormalities of plasma proteins; Z95.1 Presence of aortocoronary bypass graft; Z79.82 Long term (current) use of aspirin; Z79.01 Long term (current) use of anticoagulants; Z79.899 Other long term (current) drug therapy; Z20.822 Contact with and (suspected) exposure to COVID-19
CPT/HCPCS: 36415; 71045; 71275; 80048; 80061; 82533; 82550; 83036; 83735; 83880; 83930; 84100; 84439; 84443; 84484; 84550; 85025; 85379; 85610; 87811; 93005; 99285; J1650; J3475; J7030; Q9967

== ENCOUNTER → 2023-02-08 | Day surgery (SDC) | payer OTHER ==
[~2023-02-08] MED LIST: ATROPINE SULF 1 MG/10 ML SYR IV ONE; LIDOCAINE 2% MPF 5 ML VIAL ONE; METOPROLOL TARTRATE 5 MG/5 ML INJ IV ONE; NA CHLORIDE 0.9% 500 ML ONE; propofoL 200 MG/20 ML VIAL IV ONE
[2023-02-08 07:39] VITALS: BP 136/96; TEMP 98.1; O2SAT 100
--- NOTE | 2023-02-08 12:49 | OP ---
Date of Procedure: 02/08/2023 Surgeon: TODD MACEDO Procedures Performed: 1.Transesophageal echocardiogram. 2.Electrical cardioversion. Diagnosis: Atrial fibrillation. Description Of Procedure: After risks, benefits, alternatives were explained, patient agreed to proc edure and signed informed consent. Patient was brought into the OR room 5, and after proper time-out , the back of the throat was numbed using viscous lidocaine and then Anesthesia was in room and admin istered propofol and the patient was deeply sedated, then a MODESTA probe was inserted without difficulty . No left atrial appendage thrombus was seen. MODESTA probe was removed. Then a synchronized 200 joule s electrical cardioversion was performed successfully converting the rhythm into normal sinus rhythm. Conclusion: Successful MODESTA-guided electrical cardioversion. SR/FARIDAL Voice ID: [id number] Report ID: [id number]
--- NOTE | 2023-02-09 15:25 | EKG ---
Test Date: 2023-02-08 Test Time: 08:37:40 Pv Installer Tech: MEASUREMENT RESULTS: Intervals: Rate: 50 MS: 180 QRSD: 104 QT: 442 QTc: 402 [place]: P: 49 MS: 180 QRS: 18 T: 84 INTERPRETIVE STATEMENTS: Sinus bradycardia Nonspecific T wave abnormality Abnormal ECG Compared to ECG 02/05/2023 13:08:04 T-wave abnormality now present Atrial fibrillation no longer present ST (T wave) deviation no longer present Possible ischemia no longer present Electronically Signed On 02-09-23 15:21:59 CDT by Aly Mckeon
== END ==
LOC: CCL 07:00
PROVIDERS: ATTEND Internal Medicine
DX: I48.91 Unspecified atrial fibrillation (principal); I25.10 Atherosclerotic heart disease of native coronary artery without angina pectoris; I65.29 Occlusion and stenosis of unspecified carotid artery; I70.203 Unspecified atherosclerosis of native arteries of extremities, bilateral legs; I10 Essential (primary) hypertension; E78.5 Hyperlipidemia, unspecified; F17.210 Nicotine dependence, cigarettes, uncomplicated; Z79.899 Other long term (current) drug therapy; Z79.01 Long term (current) use of anticoagulants; Z82.49 Family history of ischemic heart disease and other diseases of the circulatory system
CPT/HCPCS: 93005; 93312; 92960; J2704; J2001; J7040; J0461

== ENCOUNTER 2023-06-18 11:06 | Inpatient (IN) | payer OTHER ==
[2023-06-18 13:15] LABS: Absolute Lymphocytes (CBC) 1.5 K/uL (0.7-4.9); Lymphocytes % 20.5 % (15.3-44.8); MCV 103.5 fL (80-100); MPV 8.7 fL (7.6-11.3); Platelets 111 thou/uL (152-406); RBC Red Blood Cell Count 3.96 M/uL (4.33-5.43)
[2023-06-18 13:38] LABS: Potassium 3.5 mEq/L (3.5-5.1); Troponin High Sensitivity 6.8 pg/mL (<58.9)
--- NOTE | 2023-06-18 13:40 | RAD REPORT ---
EXAM DESCRIPTION: RADChest Single View06/18/2023 1:07 pm CLINICAL HISTORY: dizziness COMPARISON: Chest Single View dated 07/25/2022 TECHNIQUE: Portable AP view of the chest. FINDINGS: The lungs are clear. No pneumothorax or effusion. The cardiomediastinal contours are unre markable. Stable deformities along some of the left-sided ribs, compatible with remote fractures. Se quelae of prior median sternotomy. IMPRESSION: No acute cardiopulmonary process.
--- NOTE | 2023-06-18 14:28 | EDPHYS ---
Physician Documentation [facility] Name: Marcial Ritter Jr Age: 58 yrs Sex: Male : 1965 Arrival Date: 06/18/2023 Time: 11:06 Bed 19 Private MD: ED Physician Juan F Santana HPI: 06/18 12:27 This 58 yrs old Male presents to ER via Ambulatory with complaints of fatigue, ms3 lightheadedness, shortness of breath. 12:27 58-year-old male with past medical history of hypertension and atrial fibrillation ms3 presents to the emergency department for lightheadedness, shortness of breath on exertion, and fatigue that has been ongoing for 2 weeks and recently become worse. Patient denies pain. Patient denies any alleviating factors. Patient states his symptoms are worse when standing or walking.. Historical: - Allergies: 11:53 No Known Allergies; iw - Home Meds: 11:53 amlodipine 10 mg oral tablet 1 tab daily [Active]; metoprolol tartrate 100 mg Oral iw tablet 1 tab 2 times per day [Active]; lisinopril 20 mg Oral tablet 1 tab daily [Active]; Eliquis 5 mg oral tablet 1 tab 2 times per day [Active]; - PMHx: 11:53 Hypertensive disorder; Atrial fibrillation; iw - PSHx: 11:53 Coronary artery bypass graft; iw - Immunization history:: Adult Immunizations up to date. - Social history:: Smoking status: Patient denies any tobacco usage or history of. ROS: 12:27 Neck: Negative for injury, pain, and swelling, Cardiovascular: Negative for chest pain, ms3 and palpitations. Respiratory: Negative for shortness of breath, cough, wheezing, and pleuritic chest pain, Abdomen/GI: Negative for abdominal pain, nausea, vomiting, diarrhea, and constipation, MS/Extremity: Negative for injury and deformity, Skin: Negative for injury, rash, and discoloration, 12:27 Constitutional: Positive for fatigue, 12:27 All other systems are negative, Exam: 12:27 Constitutional: This is a well developed, well nourished patient who is awake, alert, ms3 and in no acute distress. Head/Face: Normocephalic, atraumatic. Neck: Trachea midline, no cervical lymphadenopathy. Supple, full range of motion without nuchal rigidity, or vertebral point tenderness. No Meningismus. Chest/axilla: Normal chest wall appearance and motion. Nontender with no deformity. 12:27 Cardiovascular: Rate: normal, Rhythm: irregularly irregular, Pulses: no pulse deficits are appreciated, 12:27 ECG was reviewed by the Attending Physician. Vital Signs: 11:56 BP 109 / 78; Pulse 89; Resp 16; Temp 97.6; Pulse Ox 100% ; Weight 82.55 kg; Height 6 iw ft. 2 in. ; 15:14 BP 122 / 89; Pulse 89; Resp 15 S; Pulse Ox 100% on R/A; kc6 15:45 BP 126 / 92; Pulse 102; Resp 18 S; Pulse Ox 100% on R/A; kc6 11:56 Body Mass Index 23.37 (82.55 kg, 187.96 cm) iw MDM: 12:22 Patient medically screened. ms3 12:27 Differential Diagnosis Heart failure vs MA vs anemia. ms3 14:28 Data reviewed: vital signs, nurses notes, lab test result(s), EKG, radiologic studies, ms3 and as a result, I will admit patient. Consideration of Admission/Observation Patient was admitted/placed on observation. Management of patient was discussed with the following: Hospitalist: Dr Dickson and Katlin, FLA[place] DRIER. I considered the following discharge prescriptions or medication management in the emergency department Medications were administered in the Emergency Department. See MAR. Independent interpretation of the following test(s) in the Emergency Department EKG: See my EKG interpretation above. Counseling: I had a detailed discussion with the patient and/or guardian regarding the historical points, exam findings, and any diagnostic results supporting the discharge/admit diagnosis, lab results, radiology results, the need for further work-up and treatment in the hospital. ED course: Discussed EKG concerns with patient. Patient understands agrees with plan. All questions were answered. Discussed case with Katlin Grant, nurse practitioner, and Dr. Quiñones. All questions were answered. 06/18 12:21 Order name: Basic Metabolic Panel; Complete Time: 13:49 ms3 06/18 12:21 Order name: CBC with Diff; Complete Time: 13:49 ms3 06/18 12:21 Order name: Troponin HS; Complete Time: 13:49 ms3 06/18 17:21 Order name: Troponin High Sensitivity EDMS 06/18 19:06 Order name: NT PRO-BNP EDMS 06/18 23:46 Order name: Troponin High Sensitivity EDMS 06/19 04:30 Order name: CBC with Automated Diff EDMS 06/19 04:43 Order name: Troponin High Sensitivity EDMS 06/19 04:44 Order name: Basic Metabolic Panel EDMS 06/19 04:44 Order name: Phosphorus EDMS 06/19 04:44 Order name: NT PRO-BNP EDMS 06/19 04:44 Order name: Lipid Profile EDMS 06/19 04:44 Order name: Magnesium EDMS 06/19 07:05 Order name: Urinalysis w/ reflexes EDMS 06/18 12:21 Order name: XRAY Chest (1 view); Complete Time: 13:49 ms3 06/18 18:18 Order name: CT EDMS 06/18 21:43 Order name: US EDMS 06/18 12:21 Order name: EKG; Complete Time: 12:22 ms3 06/18 12:21 Order name: Cardiac monitoring; Complete Time: 12:55 ms3 06/18 12:21 Order name: EKG - Nurse/Tech; Complete Time: 14:20 ms3 06/18 12:21 Order name: IV Saline Lock; Complete Time: 12:55 ms3 06/18 12:21 Order name: Labs collected and sent; Complete Time: 12:55 ms3 06/18 12:21 Order name: O2 Per Protocol; Complete Time: 12:55 ms3 06/18 12:21 Order name: O2 Sat Monitoring; Complete Time: 12:55 ms3 EC:27 Rate is 86 beats/min. Rhythm is irregularly irregular. QRS Sublimity is Normal. QRS interval ms3 is normal. Clinical impression: Atrial Fibrillation and Ant/Lateral ST Depressions. Interpreted by me. Reviewed by me. Administered Medications: No medications were administered Disposition Summary: 06/18/23 14:27 Hospitalization Ordered Notes: Hospitalization Status: Observation ms3 Provider: Cristy Dickson ms3 Condition: Stable ms3 Problem: new ms3 Symptoms: are unchanged ms3 Bed/Room Type: Standard ms3 Location: Telemetry/MedSurg (observation)(06/19/23 12:05) bd Room Assignment: 201(06/19/23 12:05) bd Diagnosis - Lightheaded ms3 - Abnormal electrocardiogram [ECG] [EKG] ms3 - Unspecified atrial fibrillation ms3 - Shortness of breath ms3 Forms: - Medication Reconciliation Form ms3 - SBAR form ms3 - Leadership Thank You Letter ms3 Signatures: Dispatcher [employer] ED Madeleine Lopez Kathie Nogueira RN RN iw Juan F Santana, DO ms3 Mariela Sadler RN RN kb3 Corrections: (The following items were deleted from the chart) 12:33 12:27 Rate is 149 beats/min. Rhythm is regular. QRS Sublimity is Normal. ID interval is ms3 normal. QRS interval is normal. Clinical impression: Sinus tachycardia. Interpreted by me. Reviewed by me. ms3 14:28 12:27 Cardiovascular: Rate: tachycardic, Rhythm: regular, Pulses: no pulse deficits are ms3 appreciated, ms3 14:28 12:27 ECG was reviewed by the Attending Physician. ms3 ms3 15:37 14:27 Telemetry/MedSurg (observation) ms3 kb3 15:37 14:27 ms3 kb3 06/19 12:05 06/18 15:37 [facility] ER HOLD kb3 bd 06/19 12:05 06/18 15:37 ERHOLD- kb3 bd
--- NOTE | 2023-06-18 14:28 | ER ---
Nurse's Notes [facility] Name: Marcial Ritter Jr Age: 58 yrs Sex: Male : 1965 Arrival Date: 06/18/2023 Time: 11:06 Bed 19 Private MD: Diagnosis: Lightheaded;Abnormal electrocardiogram [ECG] [EKG];Unspecified atrial fibrillation;Shortness of breath Presentation: 06/18 11:56 Chief complaint: Patient states: EMS CALLED THIS AM BY CO-WORKER FOR DIZZINESS. iw Coronavirus screen: At this time, the client does not indicate any symptoms associated with coronavirus-19. Ebola Screen: No symptoms or risks identified at this time. Initial Sepsis Screen: Does the patient meet any 2 criteria? No. Patient's initial sepsis screen is negative. Does the patient have a suspected source of infection? No. Patient's initial sepsis screen is negative. Risk Assessment: Do you want to hurt yourself or someone else? Patient reports no desire to harm self or others. Onset of symptoms is unknown. 11:56 Method Of Arrival: Ambulatory iw 11:56 Acuity: ARMIN 3 iw Triage Assessment: 11:53 General: Appears in no apparent distress. Behavior is calm, cooperative, appropriate iw for age. Pain: Denies pain. Historical: - Allergies: 11:53 No Known Allergies; iw - Home Meds: 11:53 amlodipine 10 mg oral tablet 1 tab daily [Active]; metoprolol tartrate 100 mg Oral iw tablet 1 tab 2 times per day [Active]; lisinopril 20 mg Oral tablet 1 tab daily [Active]; Eliquis 5 mg oral tablet 1 tab 2 times per day [Active]; - PMHx: 11:53 Hypertensive disorder; Atrial fibrillation; iw - PSHx: 11:53 Coronary artery bypass graft; iw - Immunization history:: Adult Immunizations up to date. - Social history:: Smoking status: Patient denies any tobacco usage or history of. Screenin:00 [facility] ED Fall Risk Assessment (Adult) History of falling in the last 3 months, kc6 including since admission No falls in past 3 months (0 pts) Confusion or Disorientation No (0 pts) Intoxicated or Sedated No (0 pts) Impaired Gait No (0 pts) Mobility Assist Device Used No (0 pt) Altered Elimination No (0 pt) Score/Fall Risk Level 0 - 2 = Low Risk. Abuse screen: Denies threats or abuse. Denies injuries from another. Nutritional screening: No deficits noted. Tuberculosis screening: No symptoms or risk factors identified. Assessment: 15:13 General: Appears in no apparent distress. comfortable, well groomed, well developed, kc6 Behavior is calm, cooperative, appropriate for age. Pain: Denies pain. Neuro: Level of Consciousness is awake, alert, obeys commands, Oriented to person, place, time, situation, Appropriate for age Reports dizziness. Cardiovascular: Denies chest pain, Heart tones S1 S2 present Capillary refill < 3 seconds Rhythm is atrial fibrillation. Respiratory: Airway is patent Trachea midline Respiratory effort is even, unlabored, Respiratory pattern is regular, symmetrical. GI: No signs and/or symptoms were reported involving the gastrointestinal system. : No signs and/or symptoms were reported regarding the genitourinary system. EENT: No signs and/or symptoms were reported regarding the EENT system. Derm: No signs and/or symptoms reported regarding the dermatologic system. Skin is intact, is healthy with good turgor, Skin is pink, warm \T\ dry. Musculoskeletal: No signs and/or symptoms reported regarding the musculoskeletal system. Circulation, motion, and sensation intact. Capillary refill < 3 seconds, Range of motion: intact in all extremities. 15:45 Reassessment: Patient appears in no apparent distress at this time. No changes from kc6 previously documented assessment. Patient and/or family updated on plan of care and expected duration. Pain level reassessed. Patient is alert, oriented x 3, equal unlabored respirations, skin warm/dry/pink. Vital Signs: 11:56 BP 109 / 78; Pulse 89; Resp 16; Temp 97.6; Pulse Ox 100% ; Weight 82.55 kg; Height 6 iw ft. 2 in. ; 15:14 BP 122 / 89; Pulse 89; Resp 15 S; Pulse Ox 100% on R/A; kc6 15:45 BP 126 / 92; Pulse 102; Resp 18 S; Pulse Ox 100% on R/A; kc6 11:56 Body Mass Index 23.37 (82.55 kg, 187.96 cm) iw ED Course: 11:09 Patient arrived in ED. mr 11:53 Arm band placed on. iw 11:57 Triage completed. iw 12:00 Juan F Santana DO is Attending Physician. ms3 12:19 Isiah Ahn is Primary Nurse. tl4 12:55 Basic Metabolic Panel Sent. tl4 12:55 CBC with Diff Sent. tl4 12:55 Troponin HS Sent. tl4 12:56 Inserted saline lock: 18 gauge in right antecubital area, using aseptic technique. tl4 Blood collected. 13:09 XRAY Chest (1 view) In Process Unspecified. EDMS 14:26 Cristy Dickson MD is Hospitalizing Provider. ms3 15:00 Report received from Kathie Tsang RN. kc6 15:00 Patient has correct armband on for positive identification. Placed in gown. Bed in low kc6 position. Call light in reach. Side rails up X2. Client placed on continuous cardiac and pulse oximetry monitoring. NIBP monitoring applied. monitoring engineer on. 15:45 No provider procedures requiring assistance completed. Patient admitted, IV remains in kc6 place. 06/19 07:15 Provided Education on: ADMISSION. db Administered Medications: No medications were administered Medication: 06/18 15:45 VIS not applicable for this client. kc6 Outcome: 14:27 Decision to Hospitalize by Provider. ms3 15:45 Admitted to ER Hold. Please see [facility] for further documentation. kc6 15:45 Condition: good 15:45 Instructed on the need for admit, 06/19 13:50 Patient left the ED. db Signatures: Dispatcher [employer] EDOK Grace Mckeon, Reg Reg mr Kathie Tsang RN RN iw Juan F Santana DO DO ms3 Cinthia Pappas RN RN kc6 Charis Dillard RN RN db [place], Toni tl4
--- NOTE | 2023-06-18 14:33 | P.HP ---
Certification for Inpatient Patient admitted to: Inpatient With expected LOS: <2 Midnights Practitioner: I am a practitioner with admitting privileges, knowledge of patient current condition, hospital course, and medical plan of care. Services: Services provided to patient in accordance with Admission requirements found in Title 42 Section 412.3 of the Code of Federal Regulations Patient History Date of Service: 06/18/23 History of Present Illness: 58-year-old male with a past medical history of atrial fibrillation, hypertension, tobacco use, alcohol use, hyperlipidemia, CAD with history of CABG, CKD stage IV presents to the emergency room with shortness of breath. He reports symptoms started 2 weeks ago with progressively getting worse. He report he sees Dr. Marie for cardiology. He reports associated lightheadedness that is worth worse with exertion. He reports being on Eliquis 5 mg he takes daily. He reports 4 alcoholic beverages daily, half a pack a day smoker. He denies chest pain, cough, edema, congestive heart failure.. Plan to admit for A-fib RVR, dizziness, cardiology to evaluate. Chest x-ray IMPRESSION: No acute cardiopulmonary process Allergies No Known Allergies Allergy (Verified 02/05/23 12:58) Home Medications: Apixaban [Eliquis] 5 mg PO DAILY 07/25/22 Aspirin [Aspirin EC 81 MG] 81 mg PO DAILY 07/25/22 Amlodipine [Norvasc*] 5 mg PO DAILY 30 Days #30 tab 07/27/22 Metoprolol Tartrate [Lopressor] 25 mg PO BID 30 Days #60 tab 07/27/22 - Past Medical/Surgical History Diabetic: No -: HTN -: Nicotine dependence -: HLD -: Alcohol abuse -: CAD -: CABG - Social History Smoking Status: Current some day smoker Alcohol use: Yes CD- Drugs: No Caffeine use: Yes Review of Systems per HPI Physical Examination - Physical Exam General: Alert, In no apparent distress, Oriented x3 HEENT: Atraumatic, Normocephalic Neck: Supple, 2+ carotid pulse no bruit Respiratory: Clear to auscultation bilaterally, Normal air movement Cardiovascular: No edema, Normal pulses, Irregular heart rate/rhythm Gastrointestinal: Normal bowel sounds, Hypoactive Integumentary: No rashes, No breakdown Neurological: Normal speech, Normal strength at 5/5 x4 extr - Studies Laboratory Data (last 24 hrs) 06/18/23 06/18/23 12:48 12:48 WBC 7.20 Hgb 14.1 Hct 41.0 Plt Count 111 L Sodium 132 L Potassium 3.5 BUN 20 H Creatinine 1.85 H Glucose 106 Assessment and Plan - Plan Assessment plan Dizziness CT of the head, carotid ultrasound PT eval A-fib RVR controlled Chronic anticoagulation CAD history of CABG Cardiology consult, telemetry As needed Lopressor, resume home meds 02/08/23 MODESTA 1. TRANSESOPHAGEAL ECHOCARDIOGRAM PROBE WAS INSERTED, NO DIFFICULTY. 2. NO LEFT ATRIAL APPENDAGE THROMBUS IS SEEN 3. MILD MITRAL REGURGITATION Acute on chronic kidney injury baseline CKD stage IV BUN 28 creatinine 1.85 Trend kidney function Hyponatremia Sodium 132 Alcohol use CIWA protocol, prn ativan detox protocol Tobacco use Nicotine patch, smoking cessation education Hyperlipidemia Hypertension resume Eliquis home blood pressure medication Cardiac diet n.p.o. after midnight Full code DVT resume heparin Discharge Plan: Home - Advance Directives Does patient have a Living Will: No Does patient have a Durable POA for Healthcare: No - Code Status/Comfort Care Code Status: Full Code Critical Care: No Time Spent Managing Pts Care (In Minutes): 55
[2023-06-18] MEDS ORDERED: ZOLPIDEM TARTRATE 5 MG TABLET PO PRN (15:58)
[2023-06-18] MEDS ORDERED: ONDANSETRON 4 MG/2 ML VIAL IV PRN (15:58)
[2023-06-18] MEDS ORDERED: ACETAMINOPHEN 500 MG TAB PO PRN (15:58)
[2023-06-18] MEDS ORDERED: FLUMAZENIL 0.1 MG/ML (5 mL VIAL) IV PRN (16:42)
[2023-06-18] MEDS ORDERED: LORazepam 2 MG/ML VIAL IV PRN (16:44)
[2023-06-18] MEDS: NA CHLORIDE 0.9% 1,000 ML IV SCH (17:00)
[2023-06-18] MEDS: HEPARIN 5000 UNIT/ML 1 ML VIAL SQ SCH (17:00)
[2023-06-18] MEDS: NICOTINE 14 MG/PAT TD SCH (17:00)
[2023-06-18 17:21] LABS: Troponin High Sensitivity 7.5 pg/mL (<58.9)
[2023-06-18] MEDS ORDERED: HEPARIN 5000 UNIT/ML 1 ML VIAL ONE ×2 (17:32→23:40)
[2023-06-18] MEDS ORDERED: NA CHLORIDE 0.9% 1,000 ML ONE (17:32)
[2023-06-18] MEDS ORDERED: NICOTINE 21 MG/PAT TD ONE (17:32)
--- NOTE | 2023-06-18 18:17 | RAD REPORT ---
EXAM DESCRIPTION: CT - Head Brain Wo Cont - 06/18/2023 5:17 pm CLINICAL HISTORY: dizziness COMPARISON: No comparisons TECHNIQUE: Noncontrast head CT images were obtained without IV contrast. Multiplanar reformats were generated and reviewed. All CT scans are performed using dose optimization technique as appropriate and may include automated exposure control or mA/KV adjustment according to patient size. FINDINGS: No intracranial hemorrhage, mass, or edema. Midline structures are unremarkable. Normal ventricular caliber for age, with mild prominence of the upper sulci. Chong-white matter differentiation is preserved, without evidence of acute infarct. No abnormal extra- axial fluid collections. Mastoid air cells and visualized portions of the paranasal sinuses are clear. No acute bony findings. IMPRESSION: No evidence of an acute intracranial process.
[2023-06-18 19:05] VITALS: BMI 23.1
[2023-06-18] MEDS ORDERED: METOPROLOL TAR 25 MG TAB ONE (19:54)
[2023-06-18] MEDS: METOPROLOL TAR 25 MG TAB PO SCH (20:21)
--- NOTE | 2023-06-18 21:42 | RAD REPORT ---
EXAM DESCRIPTION: US - CP - 06/18/2023 7:14 pm CLINICAL HISTORY: dizziness COMPARISON: No comparisons TECHNIQUE: Real-time sonographic grayscale, color duplex, and spectral wave Doppler evaluation of estrella carotid systems was performed. FINDINGS: Normal high resistance waveforms are noted in both external carotid arteries. The common c arotid arteries and internal carotid arteries show normal low resistance waveforms. Moderate right irregular predominantly echogenic, and mild mild left irregular mixed echogenicity bubba que. Peak systolic velocity less than 125 cm/ sec on the right, and mildly elevated on the left, 129 cm/. ICA/CCA peak systolic ratios less than 2.0 bilaterally. Antegrade flow seen in both vertebral arteries. IMPRESSION: Up to mild atherosclerotic changes bilaterally, with 50-69% stenosis of the left ICA and less than 50% stenosis of the right ICA. Evaluation of carotid artery stenosis, if any, is reported based on consensus recommendations of the Society of Radiologists in Ultrasound (Everardo et al., Radiology, 2003)
[2023-06-19] MEDS: HEPARIN 5000 UNIT/ML 1 ML VIAL SQ SCH ×4 (00:38→18:32)
[2023-06-19 04:25] LABS: Absolute Lymphocytes (CBC) 1.1 K/uL (0.7-4.9); Hematocrit 36.2 % (39.6-49.0); Lymphocytes % 20.1 % (15.3-44.8); MCV 103.7 fL (80-100); MPV 9.2 fL (7.6-11.3); Platelets 92 thou/uL (152-406); RBC Red Blood Cell Count 3.49 M/uL (4.33-5.43)
[2023-06-19 04:42] LABS: Magnesium 1.4 mg/dL (1.6-2.4); Phosphorus 3.2 mg/dL (2.5-4.9); Potassium 4.1 mEq/L (3.5-5.1)
[2023-06-19] MEDS ORDERED: Magnesium Sulfate 2gm IVPB 2 G/50 ML BAG IV ONE ×2 (05:47→07:00)
[2023-06-19] MEDS ORDERED: NA CHLORIDE 0.9% 1,000 ML ONE (05:47)
[2023-06-19] MEDS ORDERED: MAGNESIUM SULFATE 1 gm IVPB 1 GM/100 ML BAG IV ONE ×2 (07:00→22:50)
[2023-06-19 07:05] LABS: Specific Gravity 1.014 (1.005-1.030); Urine Bilirubin NEGATIVE (Negative); Urine Blood Negative (Negative); Urine Clarity Clear (Clear); Urine Color Yellow (Yellow); Urine Glucose NEGATIVE (Negative); Urine Protein NEGATIVE (Negative); Urine Urobilinogen 1+ (Normal)
--- NOTE | 2023-06-19 08:20 | P.PN ---
Subjective Date of Service: 06/19/23 reports dizziness worse with ambuation, unsteady gait - Physical Exam General: Alert, In no apparent distress, Oriented x3 HEENT: Atraumatic, Normocephalic Neck: Supple, 2+ carotid pulse no bruit Respiratory: Clear to auscultation bilaterally, Normal air movement Cardiovascular: No edema, Normal pulses, Irregular heart rate/rhythm Gastrointestinal: Normal bowel sounds, Hypoactive Integumentary: No rashes, No breakdown Neurological: Normal speech, Normal strength at 5/5 x4 extr Review of Systems per HPI Physical Examination - Vital Signs Temperature: 98.2 F Blood Pressure: 121/84 Pulse: 94 Respirations: 18 Pulse Ox (%): 100 - Studies Laboratory Data (last 24 hrs) 06/18/23 06/18/23 12:48 12:48 WBC 7.20 Hgb 14.1 Hct 41.0 Plt Count 111 L Sodium 132 L Potassium 3.5 BUN 20 H Creatinine 1.85 H Glucose 106 Assessment And Plan - Plan Assessment plan Dizziness CT of the head IMPRESSION: No evidence of an acute intracranial process PT eval for unsteady gait Carotid Doppler IMPRESSION: Up to mild atherosclerotic changes bilaterally, with 50-69% stenosis of the left ICA and less than 50% stenosis of the right ICA. MRI of brain ordered A-fib RVR controlled Chronic anticoagulation CAD history of CABG Cardiology consult, telemetry As needed Lopressor, resume home meds 02/08/23 MODESTA 1. TRANSESOPHAGEAL ECHOCARDIOGRAM PROBE WAS INSERTED, NO DIFFICULTY. 2. NO LEFT ATRIAL APPENDAGE THROMBUS IS SEEN 3. MILD MITRAL REGURGITATION elevated bnp 864->1313 IV lasix ordered Acute on chronic kidney injury baseline CKD stage IV BUN 28 creatinine 1.85->BUN 20, CR 1.30 Trend kidney function gentle IVF Hyponatremia Sodium 132, gentle ivf Alcohol use CIWA protocol, prn ativan detox protocol Tobacco use Nicotine patch, smoking cessation education Hyperlipidemia Hypertension resume Eliquis home blood pressure medication Cardiac diet n.p.o. after midnight Full code DVT resume heparin Discharge Plan: Home - Code Status/Comfort Care Code Status: Full Code Critical Care: No Time Spent Managing PTS Care (In Minutes): 35
[2023-06-19] MEDS ORDERED: METOPROLOL TAR 25 MG TAB ONE (08:25)
[2023-06-19] MEDS ORDERED: THIAMINE HCL 100 MG TABLET ONE (08:25)
[2023-06-19] MEDS ORDERED: AMLODIPINE 5 MG TAB ONE (08:25)
[2023-06-19] MEDS ORDERED: NICOTINE 21 MG/PAT TD ONE (08:26)
[2023-06-19] MEDS ORDERED: FOLIC ACID 1 MG TABLET ONE (08:26)
[2023-06-19] MEDS ORDERED: ASPIRIN EC 81 MG TAB PO ONE (08:26)
[2023-06-19] MEDS ORDERED: HEPARIN 5000 UNIT/ML 1 ML VIAL ONE (08:26)
[2023-06-19] MEDS ORDERED: MULTIVITAMIN TAB PO ONE (08:27)
[2023-06-19] MEDS: NA CHLORIDE 0.9% 1,000 ML IV SCH (08:53)
[2023-06-19] MEDS: FOLIC ACID 1 MG TABLET PO SCH (09:00)
[2023-06-19] MEDS: NICOTINE 14 MG/PAT TD SCH (09:00)
[2023-06-19] MEDS: METOPROLOL TAR 25 MG TAB PO SCH (09:00)
[2023-06-19] MEDS: ASPIRIN EC 81 MG TAB PO SCH (09:00)
[2023-06-19] MEDS: MULTIVITAMIN TAB PO SCH (09:00)
[2023-06-19] MEDS: AMLODIPINE 5 MG TAB PO SCH (09:00)
[2023-06-19] MEDS: THIAMINE HCL 100 MG TABLET PO SCH (09:00)
[2023-06-19] MEDS ORDERED: FUROSEMIDE 40 MG/4 ML VIAL IV SCH (17:00)
--- NOTE | 2023-06-19 17:13 | EKG ---
Test Date: 2023-06-18 Test Time: 12:58:46 Repair Armature Winder: DURAN MEASUREMENT RESULTS: Intervals: Rate: 86 AR: QRSD: 100 QT: 382 QTc: 457 [place]: P: AR: QRS: 24 T: 232 INTERPRETIVE STATEMENTS: Atrial fibrillation ST & T wave abnormality, consider inferior ischemia ST & T wave abnormality, consider anterolateral ischemia Abnormal ECG Compared to ECG 02/08/2023 08:37:40 ST (T wave) deviation now present Possible ischemia now present Sinus bradycardia no longer present T-wave abnormality no longer present Electronically Signed On 06-19-23 17:10:44 [employer]OR[employer] CENTER MANAGER by Aly Mckeon
--- NOTE | 2023-06-19 17:26 | RAD REPORT ---
EXAM DESCRIPTION: MRI - Brain Wo Cont - 06/19/2023 5:13 pm CLINICAL HISTORY: rule out CVA COMPARISON: Head Brain Wo Cont dated 06/18/2023; Carotid Artery Bilateral dated 06/18/2023 TECHNIQUE: Sagittal T1-weighted images were obtained along with PD/heavily T2-weighted and T2-FLAIR images. Axial DWI and ADC mapping sequences were also obtained along with coronal heavily T2-weighted images were obtained. FINDINGS: No intracranial hemorrhage, mass or acute infarction. There is no edema or shift of midlin e structures. No extra-axial fluid collections. Signal voids are seen as a normal finding in the placido r intracranial vessels. No significant white matter disease. Stefan cisterna magna. Cerebral atrophy. Circumferential thickening in the maxillary sinuses and several ethmoid air cells. IMPRESSION: No acute intracranial abnormality. Specifically, no evidence acute infarct.
[2023-06-19] MEDS: SOTALOL HCL 80 MG TAB PO SCH (18:31)
--- NOTE | 2023-06-19 20:54 | CON ---
Date of Consultation: 06/19/2023 Reason For Consultation: Atrial fibrillation with RVR and shortness of breath. History Of Present Illness: A 58-year-old male with history of atrial fibrillation, hypertension, co ronary artery disease status post CABG, peripheral vascular disease, dyslipidemia, alcohol dependence , and active smoker, presented to the emergency room with shortness of breath, progressively getting worse along with palpitation, found to be in atrial fibrillation with rapid ventricular response, on metoprolol. Heart rate improved and his symptoms are better. Past Medical History: As outlined above in HPI. Medications: Refer to reconciliation sheet for detailed list. Allergies: NO KNOWN DRUG ALLERGIES. Family History: No premature coronary artery disease or cancer. Social History: He drinks about 4 drinks every night and active smoker. Does not use any drugs. Review of Systems: All systems reviewed are negative except mentioned in HPI. Physical Examination: Vital Signs: Reviewed. Head and Neck: Pupils are equal, reactive to light. Intact eye movements. Neck: No JVD. No cervical lymphadenopathy. Neck is supple. Thyroid is not enlarged. Lungs: Clear to auscultation bilaterally. No rhonchi, rales, or crackles. No accessory muscle use. Heart: Irregularly irregular. No extra sounds. Abdomen: Soft, nontender. Bowel sounds positive. No organomegaly. No masses or hernia. No rigidi ty or rebound. Extremities: No clubbing, cyanosis. No edema. Neurologic: Alert, awake, oriented x3. No acute focal deficits appreciated. Investigations: Creatinine 1.3, down from 1.85. Cardiac enzymes are negative and hemoglobin 12.6. Assessment/recommendation: 1.Atrial fibrillation with rapid ventricular response. He does not tolerate atrial fibrillation danyel y well. He gets very short of breath. Start him on sotalol 80 mg twice a day and after third dose i f he does not convert to sinus rhythm, we will plan for MODESTA-guided cardioversion and recommend also E liquis 5 mg twice a day. 2.Congestive heart failure exacerbation, responded well to Lasix. Monitor BUN, creatinine carefully and the patient was counseled to quit drinking. 3.Acute renal failure. This is resolved due to the acute CHF exacerbation and continue to monitor B UN and creatinine. 4.Hypertension. Blood pressure is controlled. 5.Dyslipidemia. Started Lipitor 40 mg. SR/MODL Voice ID: [id number] Report ID: [id number]
[2023-06-20 03:47] LABS: Absolute Lymphocytes (CBC) 0.7 K/uL (0.7-4.9); Hematocrit 34.4 % (39.6-49.0); Lymphocytes % 21.6 % (15.3-44.8); MCV 103.3 fL (80-100); MPV 9.2 fL (7.6-11.3); Platelets 81 thou/uL (152-406); RBC Red Blood Cell Count 3.33 M/uL (4.33-5.43)
[2023-06-20 03:55] LABS: Magnesium 1.9 mg/dL (1.6-2.4); Potassium 3.5 mEq/L (3.5-5.1)
[2023-06-20 05:51] LABS: Blood Morphology Comment NOT SEEN (NOT SEEN); Platelet Estimate DECR; White Blood Cell Scan OK (OK)
[2023-06-20] MEDS ORDERED: POTASSIUM 25 MEQ EFFERV TAB PO ONE (05:55)
[2023-06-20] MEDS: SOTALOL HCL 80 MG TAB PO SCH ×2 (06:39→17:54)
--- NOTE | 2023-06-20 09:04 | P.PN ---
Subjective Date of Service: 06/20/23 Chief Complaint: Dizziness reports dizziness worse with ambuation, unsteady gait, plan to start new cardiac medication, Eliquis and sotalol will obtain daily - Physical Exam General: Alert, In no apparent distress, Oriented x3 HEENT: Atraumatic, Normocephalic Neck: Supple, 2+ carotid pulse no bruit Respiratory: Clear to auscultation bilaterally, Normal air movement Cardiovascular: No edema, Normal pulses, Irregular heart rate/rhythm Gastrointestinal: Normal bowel sounds, Hypoactive Integumentary: No rashes, No breakdown Neurological: Normal speech, Normal strength at 5/5 x4 extr Review of Systems per HPI Physical Examination - Vital Signs Temperature: 97.2 F Blood Pressure: 113/72 Pulse: 98 Respirations: 20 Pulse Ox (%): 98 Assessment And Plan - Plan Assessment plan Dizziness CT of the head IMPRESSION: No evidence of an acute intracranial process PT eval for unsteady gait Carotid Doppler IMPRESSION: Up to mild atherosclerotic changes bilaterally, with 50-69% stenosis of the left ICA and less than 50% stenosis of the right ICA. MRI of brain ordered no acute abnormality, A-fib RVR controlled Chronic anticoagulation CAD history of CABG Cardiology consult, telemetry, daily EKG As needed Lopressor, resume home meds 02/08/23 MODESTA 1. TRANSESOPHAGEAL ECHOCARDIOGRAM PROBE WAS INSERTED, NO DIFFICULTY. 2. NO LEFT ATRIAL APPENDAGE THROMBUS IS SEEN 3. MILD MITRAL REGURGITATION Per cardiology Start him on sotalol 80 mg twice a day and after third dose if he does not convert to sinus rhythm, we will plan for MODESTA-guided cardioversion and recommend also Eliquis 5 mg twice a day elevated bnp [id number] IV lasix ordered Acute on chronic kidney injury baseline CKD stage IV BUN 28 creatinine 1.85->BUN 20, CR 1.30 Trend kidney function gentle IVF Hyponatremia Sodium 132, gentle ivf Alcohol use CIWA protocol, prn ativan detox protocol Tobacco use Nicotine patch, smoking cessation education Hyperlipidemia Hypertension resume Eliquis home blood pressure medication Cardiac diet n.p.o. after midnight Full code DVT resume heparin Discharge Plan: Home - Code Status/Comfort Care Code Status: Full Code Critical Care: No Time Spent Managing PTS Care (In Minutes): 35
[2023-06-20] MEDS: FOLIC ACID 1 MG TABLET PO SCH (09:48)
[2023-06-20] MEDS: THIAMINE HCL 100 MG TABLET PO SCH (09:48)
[2023-06-20] MEDS: AMLODIPINE 5 MG TAB PO SCH (09:48)
[2023-06-20] MEDS: ASPIRIN EC 81 MG TAB PO SCH (09:48)
[2023-06-20] MEDS: MULTIVITAMIN TAB PO SCH (09:48)
[2023-06-20] MEDS: NICOTINE 14 MG/PAT TD SCH (09:48)
[2023-06-20] MEDS: FUROSEMIDE 40 MG TABLET PO SCH ×2 (09:48→17:54)
[2023-06-20] MEDS: APIXABAN 5 MG TABLET PO SCH ×2 (17:54→21:00)
--- NOTE | 2023-06-20 19:40 | PN ---
Date of Progress Note: 06/20/2023 Subjective: Seen by bedside, doing clinically well. Does not have any chest pain. Minimal shortnes s of breath on exertion. Still in atrial fibrillation and the rate is controlled. Review of Systems: No chest pain, shortness of breath, orthopnea, or cough. No nausea, vomiting, or diarrhea. All othe r systems were reviewed, they were negative. Objective: Vital Signs: Reviewed. Head and Neck: Pupils are equal, reactive to light. Intact eye movements. No JVD. No cervical lym phadenopathy. Neck is supple. Thyroid is not enlarged. Lungs: Clear to auscultation bilaterally. No rhonchi, wheezing, or crackles. No accessory muscle u se. Heart: Irregularly irregular. No extra sounds. Abdomen: Soft, nontender. Bowel sounds positive. No organomegaly. No masses or hernia. No rigidi ty or rebound. Extremities: No edema, clubbing, or cyanosis. Intact pulses. Skin: No rash or nodule. Neurologic: Alert, awake, oriented x3. No acute focal deficits appreciated. Investigations: Labs reviewed. Assessment And Recommendations: 1.Atrial fibrillation with rapid ventricular response, rate is controlled, but not in sinus rhythm y et and he does not tolerate atrial fibrillation very well. Continue sotalol that was started last ni ght and by tomorrow afternoon if he continues to be in atrial fibrillation, we will plan for MODESTA-guid ed cardioversion. 2.Acute on chronic diastolic heart failure exacerbation, responded very well to Lasix and now he is on oral. Continue current management. Carefully monitor BUN, creatinine, electrolytes. 3.Acute renal failure, this is resolved. 4.Alcohol dependency. He was counseled in detail. SR/MODL Voice ID: [id number] Report ID: [id number]
[2023-06-21] MEDS: SOTALOL HCL 80 MG TAB PO SCH ×2 (06:10→18:10)
[2023-06-21 06:21] LABS: Absolute Lymphocytes (CBC) 1.4 K/uL (0.7-4.9); Lymphocytes % 28.8 % (15.3-44.8); MCV 102.9 fL (80-100); Platelets 89 thou/uL (152-406); RBC Red Blood Cell Count 3.69 M/uL (4.33-5.43)
[2023-06-21 06:42] LABS: Magnesium 1.5 mg/dL (1.6-2.4); Potassium 3.7 mEq/L (3.5-5.1)
--- NOTE | 2023-06-21 07:10 | P.PN ---
Subjective Date of Service: 06/21/23 Chief Complaint: Dizziness reports dizziness worse with ambuation, unsteady gait, plan to start new cardiac medication, Eliquis and sotalol will obtain daily - Physical Exam General: Alert, In no apparent distress, Oriented x3 HEENT: Atraumatic, Normocephalic Neck: Supple, 2+ carotid pulse no bruit Respiratory: Clear to auscultation bilaterally, Normal air movement Cardiovascular: No edema, Normal pulses, Irregular heart rate/rhythm Gastrointestinal: Normal bowel sounds, Hypoactive Integumentary: No rashes, No breakdown Neurological: Normal speech, Normal strength at 5/5 x4 extr Review of Systems per HPI Physical Examination - Vital Signs Temperature: 98.3 F Blood Pressure: 126/98 Pulse: 100 Respirations: 16 Pulse Ox (%): 99 Assessment And Plan - Plan Assessment plan Dizziness CT of the head IMPRESSION: No evidence of an acute intracranial process PT eval for unsteady gait Carotid Doppler IMPRESSION: Up to mild atherosclerotic changes bilaterally, with 50-69% stenosis of the left ICA and less than 50% stenosis of the right ICA. MRI of brain ordered no acute abnormality, A-fib RVR controlled Chronic anticoagulation CAD history of CABG Cardiology consult, telemetry, daily EKG As needed Lopressor, resume home meds 02/08/23 MODESTA 1. TRANSESOPHAGEAL ECHOCARDIOGRAM PROBE WAS INSERTED, NO DIFFICULTY. 2. NO LEFT ATRIAL APPENDAGE THROMBUS IS SEEN 3. MILD MITRAL REGURGITATION Per cardiology Start him on sotalol 80 mg twice a day and after third dose if he does not convert to sinus rhythm, we will plan for MODESTA-guided cardioversion and recommend also Eliquis 5 mg twice a day For possible cardioversion with Dr. Mckeon elevated bnp 864->1313 IV lasix ordered Acute on chronic kidney injury baseline CKD stage IV BUN 28 creatinine 1.85->BUN 20, CR 1.30 Trend kidney function gentle IVF Hyponatremia Sodium 132, gentle ivf Alcohol use CIWA protocol, prn ativan detox protocol Tobacco use Nicotine patch, smoking cessation education Hyperlipidemia Hypertension resume Eliquis home blood pressure medication Cardiac diet n.p.o. after midnight Full code DVT resume heparin Discharge Plan: Home - Code Status/Comfort Care Code Status: Full Code Critical Care: No Time Spent Managing PTS Care (In Minutes): 35
[2023-06-21] MEDS ORDERED: Magnesium Sulfate 2gm IVPB 2 G/50 ML BAG IV ONE ×2 (07:32→08:30)
[2023-06-21] MEDS: FOLIC ACID 1 MG TABLET PO SCH (09:00)
[2023-06-21] MEDS: MULTIVITAMIN TAB PO SCH (09:00)
[2023-06-21] MEDS: THIAMINE HCL 100 MG TABLET PO SCH (09:00)
[2023-06-21] MEDS ORDERED: POTASSIUM CL SA 10 MEQ TAB PO ONE (09:00)
[2023-06-21 09:58] VITALS: O2SAT 98
[2023-06-21] MEDS: APIXABAN 5 MG TABLET PO SCH ×2 (12:33→20:04)
[2023-06-21] MEDS: FUROSEMIDE 40 MG TABLET PO SCH ×2 (12:33→17:00)
[2023-06-21] MEDS: NICOTINE 14 MG/PAT TD SCH (12:33)
[2023-06-21] MEDS: ASPIRIN EC 81 MG TAB PO SCH (12:33)
[2023-06-21] MEDS: AMLODIPINE 5 MG TAB PO SCH (12:34)
[2023-06-22] MEDS: SOTALOL HCL 80 MG TAB PO SCH ×2 (05:06→06:51)
[2023-06-22] MEDS: APIXABAN 5 MG TABLET PO SCH (06:51)
[2023-06-22] MEDS: ASPIRIN EC 81 MG TAB PO SCH (06:52)
--- NOTE | 2023-06-22 07:05 | P.DS ---
Admission Date: 06/20/23 Discharge Date: 06/22/23 Disposition: ROUTINE DISCHARGE Discharge Condition: FAIR Reason for Admission: Dizziness Brief History of Present Illness: 58-year-old male with a past medical history of atrial fibrillation, hypertension, tobacco use, alcohol use, hyperlipidemia, CAD with history of CABG, CKD stage IV presents to the emergency room with shortness of breath. He reports symptoms started 2 weeks ago with progressively getting worse. He report he sees Dr. Marie for cardiology. He reports associated lightheadedness that is worth worse with exertion. He reports being on Eliquis 5 mg he takes daily. He reports 4 alcoholic beverages daily, half a pack a day smoker. He denies chest pain, cough, edema, congestive heart failure.. Plan to admit for A-fib RVR, dizziness, cardiology to evaluate. Chest x-ray IMPRESSION: No acute cardiopulmonary process - Physical Exam General: Alert, In no apparent distress, Oriented x3 HEENT: Atraumatic, Normocephalic Neck: Supple, 2+ carotid pulse no bruit Respiratory: Clear to auscultation bilaterally, Normal air movement Cardiovascular: No edema, Normal pulses, regular heart rate/rhythm Gastrointestinal: Normal bowel sounds, Hypoactive Integumentary: No rashes, No breakdown Neurological: Normal speech, Normal strength at 5/5 x4 extr Hospital Course: 58-year-old patient with a past medical history of atrial fibrillation presented with dizziness and A-fib uncontrolled. Was noted to have symptomatic atrial fibrillation. Was seen by cardiology consult. Was treated with sotalol p.o.Condition improved with planned cardioversion. Stable for discharge with follow-up appointment with cardiology. New medications sotalol 80 twice daily, Eliquis 5 mg twice daily. After cardioversion is in sinus rhythm 80. Imaging Brain MRI negative for acute findings CT of the head negative for acute intracranial findings Bilateral carotid Dopplers Carotid Doppler IMPRESSION: Up to mild atherosclerotic changes bilaterally, with 50-69% stenosis of the left ICA and less than 50% stenosis of the right ICA. MRI of brain ordered no acute abnormality, PROBLEM: Dizziness Atrial fibrillation uncontrolled Tobacco use Alcohol use GOAL: Clear understanding of disease process Follow-up with cardiology Dr Mckeon in 1 to 2 weeks post cardioversion 06/22/23 New prescription sotalol 80 mg twice daily Eliquis 5 mg 1 tablet twice daily INSTRUCTIONS: Physician Discharge Instructions: -DC IV and DC home -Follow-up with PCP in 1 to 2 weeks -Please call Dr. Dickson at [phone] if any questions regarding hospital stay -Please call nursing station at [phone] if any nursing or medication questions -Return to the emergency room if symptoms worsen Diet: ADA, low sodium Activity: Fall precautions DME: Date Ordered: Name of Company: [employer] Services Needed: None Date or Referral: IMMUNIZATION Influenza Vaccine Indicated: Influenza Vaccine Given: Date Given: Pneumonia Vaccine Indicated: Pneumonia Vaccine Given: Date Given: Vital Signs/Physical Exam: Temp Pulse Resp BP Pulse Ox 97.3 F 88 18 107/78 98 06/22/23 04:00 06/22/23 04:00 06/22/23 04:00 06/22/23 04:00 06/22/23 04:00 Laboratory Data at Discharge: WBC 4.90 thou/uL (4.3-10.9) 06/21/23 05:44 Hgb 13.2 g/dL (13.6-17.9) L D 06/21/23 05:44 Hct 38.0 % (39.6-49.0) L 06/21/23 05:44 Plt Count 89 thou/uL (152-406) L 06/21/23 05:44 Sodium 134 mEq/L (136-145) L 06/21/23 05:44 Potassium 3.7 mEq/L (3.5-5.1) 06/21/23 05:44 BUN 22 mg/dL (7-18) H 06/21/23 05:44 Creatinine 1.30 mg/dL (0.70-1.30) 06/21/23 05:44 Glucose 106 mg/dL (74-106) 06/21/23 05:44 Phosphorus Cancelled 06/19/23 05:00 Magnesium 1.5 mg/dL (1.6-2.4) L 06/21/23 05:44 Triglycerides 91 mg/dL (<150) 06/19/23 03:47 Cholesterol 179 mg/dL (<200) 06/19/23 03:47 HDL Cholesterol 67 mg/dL (40-60) H 06/19/23 03:47 Cholesterol/HDL Ratio 2.67 06/19/23 03:47 Home Medications: Apixaban [Eliquis] 5 mg PO DAILY 07/25/22 Aspirin [Aspirin EC 81 MG] 81 mg PO DAILY 07/25/22 Amlodipine [Norvasc*] 10 mg PO DAILY 06/19/23 Lisinopril [Zestril] 20 mg PO DAILY 06/19/23 Metoprolol Tartrate [Lopressor] 100 mg PO BID 06/19/23 Omeprazole Magnesium [Prilosec Otc] 20 mg PO DAILY 06/19/23 Physician Discharge Instructions: PROBLEM: Atrial fibrillation Dizziness Unsteady gait Follow-up with cardiology in 7 to 10 days Take medications as prescribed Cardiac diet GOAL: Clear understanding of disease process INSTRUCTIONS: Physician Discharge Instructions: -DC IV and DC home -Follow-up with PCP in 1 to 2 weeks -Please call Dr. Dickson at [phone] if any questions regarding hospital stay -Please call nursing station at [phone] if any nursing or medication questions -Return to the emergency room if symptoms worsen Diet: ADA, low sodium Activity: Fall precautions DME: Date Ordered: Name of Company: [employer] Services Needed: None Date or Referral: IMMUNIZATION Influenza Vaccine Indicated: Influenza Vaccine Given: Diet: Low sodium Activity: Fall precautions Followup: NONE,NONE [Primary Care Provider] - Aly Mckeon MD [ACTIVE - CAN ADMIT] - Time spent managing pt's care (in minutes): 55
--- NOTE | 2023-06-22 07:12 | P.PN ---
Subjective Date of Service: 06/22/23 Chief Complaint: Dizziness NPO for MODESTA today reports dizziness worse with ambuation, unsteady gait, plan to start new cardiac medication, Eliquis and sotalol daily - Physical Exam General: Alert, In no apparent distress, Oriented x3 HEENT: Atraumatic, Normocephalic Neck: Supple, 2+ carotid pulse no bruit Respiratory: Clear to auscultation bilaterally, Normal air movement Cardiovascular: No edema, Normal pulses, Irregular heart rate/rhythm Gastrointestinal: Normal bowel sounds, Hypoactive Integumentary: No rashes, No breakdown Neurological: Normal speech, Normal strength at 5/5 x4 extr Review of Systems per HPI Physical Examination - Vital Signs Temperature: 97.3 F Blood Pressure: 107/78 Pulse: 88 Respirations: 18 Pulse Ox (%): 98 Assessment And Plan - Plan Assessment plan Dizziness CT of the head IMPRESSION: No evidence of an acute intracranial process PT eval for unsteady gait Carotid Doppler IMPRESSION: Up to mild atherosclerotic changes bilaterally, with 50-69% stenosis of the left ICA and less than 50% stenosis of the right ICA. MRI of brain ordered no acute abnormality, A-fib RVR controlled Chronic anticoagulation CAD history of CABG Cardiology consult, telemetry, daily EKG As needed Lopressor, resume home meds 02/08/23 MODESTA 1. TRANSESOPHAGEAL ECHOCARDIOGRAM PROBE WAS INSERTED, NO DIFFICULTY. 2. NO LEFT ATRIAL APPENDAGE THROMBUS IS SEEN 3. MILD MITRAL REGURGITATION Per cardiology Start him on sotalol 80 mg twice a day and after third dose if he does not convert to sinus rhythm, we will plan for MODESTA-guided cardioversion and recommend also Eliquis 5 mg twice a day For possible cardioversion with Dr. Mckeon 06/22 Scheduled MODESTA today, will keep NPO elevated bnp [id number]->[id number] IV lasix ordered Acute on chronic kidney injury baseline CKD stage IV BUN 28 creatinine 1.85->BUN 20, CR 1.30 Trend kidney function gentle IVF Hyponatremia Sodium 132, gentle ivf Alcohol use CIWA protocol, prn ativan detox protocol Tobacco use Nicotine patch, smoking cessation education Hyperlipidemia Hypertension resume Eliquis home blood pressure medication Cardiac diet n.p.o. after midnight Full code DVT Eliquis Discharge Plan: Home - Code Status/Comfort Care Code Status: Full Code Critical Care: No Time Spent Managing PTS Care (In Minutes): 55
[2023-06-22] MEDS ORDERED: NA CHLORIDE 0.9% 500 ML ONE (07:17)
[2023-06-22] MEDS ORDERED: propofoL 200 MG/20 ML VIAL IV ONE (07:27)
[2023-06-22] MEDS ORDERED: LIDOCAINE 2% MPF 5 ML VIAL ONE (07:27)
[2023-06-22] MEDS ORDERED: MIDAZOLAM HCL 2 MG/2 ML INJ ONE (07:27)
[2023-06-22] MEDS ORDERED: EPHEDRINE SULF 50 MG/ML VIAL ONE (07:28)
[2023-06-22] MEDS ORDERED: METOPROLOL TARTRATE 5 MG/5 ML INJ IV ONE (07:37)
[2023-06-22] MEDS ORDERED: ATROPINE SULF 1 MG/10 ML SYR IV ONE (07:37)
[2023-06-22] MEDS: FUROSEMIDE 40 MG TABLET PO SCH (09:00)
[2023-06-22] MEDS: AMLODIPINE 5 MG TAB PO SCH (09:00)
[2023-06-22] MEDS: MULTIVITAMIN TAB PO SCH (09:52)
[2023-06-22] MEDS: THIAMINE HCL 100 MG TABLET PO SCH (09:52)
[2023-06-22] MEDS: FOLIC ACID 1 MG TABLET PO SCH (09:53)
[2023-06-22] MEDS: NICOTINE 14 MG/PAT TD SCH (09:53)
[2023-06-22 10:23] LABS: Magnesium 2.1 mg/dL (1.6-2.4); Potassium 3.8 mEq/L (3.5-5.1)
[2023-06-22 12:42] VITALS: BP 107/78; TEMP 97.1
--- NOTE | 2023-06-22 13:25 | EKG ---
Test Date: 2023-06-21 Test Time: 11:24:45 Bankman: MARSHA MEASUREMENT RESULTS: Intervals: Rate: 78 [place]: QRSD: 106 QT: 408 QTc: 465 [place]: P: [place]: QRS: 40 T: 219 INTERPRETIVE STATEMENTS: Atrial flutter with variable AV block ST & T wave abnormality, consider inferior ischemia ST & T wave abnormality, consider anterolateral ischemia Prolonged QT Abnormal ECG Compared to ECG 06/18/2023 12:58:46 Prolonged QT interval now present Atrial fibrillation no longer present ST (T wave) deviation still present Possible ischemia still present Electronically Signed On 06-22-23 13:22:59 DIRECTOR OF INSTRUCTION by Aly Mckeon
--- NOTE | 2023-06-22 18:07 | PN ---
Date of Progress Note: 06/22/2023 Subjective: Seen by bedside, doing clinically well, still in atrial fibrillation. The MODESTA guided ca rdioversion converted successfully to sinus rhythm. Review of Systems: No chest pain, shortness of breath, orthopnea, cough. No nausea, vomiting, diarrhea. All other syst ems reviewed are negative. Physical Examination: Vital Signs: Reviewed. Head and Neck: Pupils are equal, reactive to light. Intact eye movements. No JVD. No cervical lym phadenopathy. Neck: Supple. Thyroid is not enlarged. Lungs: Clear to auscultation bilaterally. No rhonchi, rales, or crackles. No accessory muscle use. Heart: Regular rate and rhythm. No extra sounds. Abdomen: Soft, nontender. Bowel sounds positive. No organomegaly. No masses or hernia. No rigidi ty or rebound. Extremities: No edema, clubbing, cyanosis. Intact pulses. Skin: No rash or nodule. Neurologic: Alert, awake, oriented x3. No focal deficits appreciated. Investigations: BUN 28, creatinine 1.31 and hemoglobin is 13.2. Assessment And Recommendations: 1.Acute on chronic diastolic heart failure exacerbation, is euvolemic. Change Lasix to 40 mg once d aily. Low-salt diet. Avoid alcohol. 2.Atrial fibrillation with rapid ventricular response, status post successful MODESTA-guided cardioversi on. Continue Eliquis and sotalol. Check an EKG to make sure the QTc interval is normal. 3.Smoker. He was counseled to quit. 4.Hypertension. Pressure is controlled. 5.Dyslipidemia. Start Lipitor 40 mg. SR/MODL Voice ID: [id number] Report ID: [id number]
--- NOTE | 2023-06-25 07:00 | TEE ---
TRANSESOPHAGEAL ECHOCARDIOGRAM REPORT CARDIOLOGY DEPARTMENT DATE OF STUDY: 06/22/2023 HEIGHT: 6'2" WEIGHT: 180 lbs DIAGNOSIS: ATRIAL FIBRILLATION STROKE PROGRAM COORDINATOR COMMENTS: MODESTA CARDIAC HISTORY: CATHERIZATION: SURGERY: PROSTHETIC VALVE: PACEMAKER: 2 DIMENSIONAL ASSESSMENT: RIGHT ATRIUM: LEFT ATRIUM: RIGHT VENTRICLE: LEFT VENTRICLE: TRICUSPID VALVE: MITRAL VALVE: PULMONIC VALVE: AORTIC VALVE: PERICARDIAL EFFUSION: AORTIC ROOT: EJECTION FRACTION: 55-60 % LEFT VENTRICULAR WALL MOTION: DOPPLER/COLOR FLOW: COMMENTS: 1. TRANSESOPHAGEAL ECHOCARDIOGRAM PROBE WAS INSERTED, NO DIFFICULTY 2. NORMAL LEFT VENTRICULAR EJECTION FRACTION 55-60% 3. NO LEFT ATRIAL APPENDAGE THROMBUS IS SEEN TECHNOLOGIST: LINCOLN FLOREZ
== END 2023-06-22 15:00 | disposition home or self-care (01) | DRG 308 ==
LOC: ER 11:06 → ERHOLD 14:29 → 2ND 06-19 13:10 → OBSVTOIN 06-20 11:52
PROVIDERS: ADMIT Internal Medicine; ATTEND Hospitalist
PROC: B24BZZ4 Ultrasonography of Heart with Aorta, Transesophageal (ICD-10-PCS; principal; 2023-06-22)
PROC: 5A2204Z Restoration of Cardiac Rhythm, Single (ICD-10-PCS; 2023-06-22)
DX: I48.91 Unspecified atrial fibrillation (principal); I50.33 Acute on chronic diastolic (congestive) heart failure; E87.1 Hypo-osmolality and hyponatremia; N17.9 Acute kidney failure, unspecified; N18.4 Chronic kidney disease, stage 4 (severe); I13.0 Hypertensive heart and chronic kidney disease with heart failure and stage 1 through stage 4 chronic kidney disease, or unspecified chronic kidney disease; E78.5 Hyperlipidemia, unspecified; F10.20 Alcohol dependence, uncomplicated; I25.10 Atherosclerotic heart disease of native coronary artery without angina pectoris; F17.210 Nicotine dependence, cigarettes, uncomplicated; Z95.1 Presence of aortocoronary bypass graft; Z71.6 Tobacco abuse counseling; Z79.82 Long term (current) use of aspirin; Z79.01 Long term (current) use of anticoagulants; Z79.899 Other long term (current) drug therapy
CPT/HCPCS: 36415; 70450; 70551; 71045; 80048; 80061; 81003; 83735; 83880; 84100; 84484; 85025; 92610; 92960; 93005; 93312; 93880; 94760; 97112; 97116; 97161; 99285; G0378; J0461; J1644; J1940; J2001; J2250; J2704; J3475; J7030; J7040

== ENCOUNTER 2024-05-05 01:22 | Observation (INO) | payer OTHER ==
[2024-05-05] MEDS ORDERED: NITROGLYCERIN 0.4 MG/TAB SL ONE (02:08)
[2024-05-05] MEDS ORDERED: ASPIRIN 81 MG CHEWABLE TABLET ONE (02:08)
[2024-05-05 02:22] LABS: Absolute Basophils 0.1 K/uL (0-0.5); Absolute Eosinophils 0.1 K/uL (0-0.5); Absolute Lymphocytes (CBC) 1.8 K/uL (0.7-4.9); Absolute Monocytes 0.8 K/uL (0.1-1.3); Absolute Neutrophil 4.7 K/uL (1.8-8.0); Basophils % 0.7 % (0-1.3); Eosinophils % 1.4 % (0-4.4); Hematocrit 37.1 % (39.6-49.0); Hemoglobin 12.9 g/dL (13.6-17.9); Lymphocytes % 24.4 % (15.3-44.8); MCH 37.6 pg (27.0-35.0); MCHC 34.8 g/dL (32.0-36.0); MCV 108.1 fL (80-100); MPV 7.6 fL (7.6-11.3); Monocytes % 10.9 % (3.3-12.3); Neutrophils % 62.6 % (41.7-73.7); Platelets 213 thou/uL (152-406); RBC Red Blood Cell Count 3.43 M/uL (4.33-5.43); Red Cell Distribution Width 21.8 % (12.1-15.2)
[2024-05-05 02:25] LABS: PT Prothrombin Time 11.3 SECONDS (9.4-12.5); Protime INR 1.01
[2024-05-05 02:36] LABS: Albumin 3.3 g/dL (3.4-5.0); Anion Gap 10.6 mEq/L (5.0-15.0); Bilirubin Direct 0.2 mg/dL (0-0.2); Bilirubin Indirect, Calculated 0.5 mg/dL (0.2-0.8); Bilirubin Total 0.7 mg/dL (0.2-1.0); Globulin 3.4 g/dL (2.3-3.5); Magnesium 1.2 mg/dL (1.6-2.4); Protein, Total 6.7 g/dL (6.4-8.2); Troponin High Sensitivity 13.9 pg/mL (<58.9)
[2024-05-05 02:54] LABS: Potassium 2.6 mEq/L (3.5-5.1)
--- NOTE | 2024-05-05 03:36 | ER ---
Nurse's Notes [facility] Name: Marcial Ritter Jr Age: 58 yrs Sex: Male : 1965 Arrival Date: 05/05/2024 Time: 01:22 Bed 8 Private MD: Diagnosis: Chest pain, unspecified;Hypokalemia Presentation: 05/05 01:47 Chief complaint: Patient states: CHEST PRESSURE AND SOB ALL DAY. vc1 01:47 Coronavirus screen: Client denies travel out of the [place] in the last 14 days. At this vc1 time, the client does not indicate any symptoms associated with coronavirus-19. Ebola Screen: Patient negative for fever greater than or equal to 101.5 degrees Fahrenheit, and additional compatible Ebola Virus Disease symptoms Patient denies exposure to infectious person. Patient denies travel to an Ebola-affected area in the 21 days before illness onset. No symptoms or risks identified at this time. Initial Sepsis Screen: Does the patient meet any 2 criteria? No. Patient's initial sepsis screen is negative. Does the patient have a suspected source of infection? No. Patient's initial sepsis screen is negative. Risk Assessment: Do you want to hurt yourself or someone else? Patient reports no desire to harm self or others. Onset of symptoms was May 04, 2024. 01:47 Method Of Arrival: Ambulatory vc1 01:47 Acuity: ARMIN 3 vc1 Triage Assessment: 02:17 General: Appears in no apparent distress. Behavior is calm, cooperative, appropriate vc1 for age. Pain: Denies pain. EENT: No deficits noted. No signs and/or symptoms were reported regarding the EENT system. Neuro: Level of Consciousness is awake, alert, obeys commands, Oriented to person, place, time, situation, Appropriate for age. Cardiovascular: Reports shortness of breath, CHEST PRESSURE Patient's skin is warm and dry. Respiratory: Reports shortness of breath at rest Airway is patent Respiratory effort is even, unlabored, Respiratory pattern is regular, symmetrical. GI: No deficits noted. No signs and/or symptoms were reported involving the gastrointestinal system. : No deficits noted. No signs and/or symptoms were reported regarding the genitourinary system. Derm: Skin is intact, is healthy with good turgor, Skin is dry, Skin is normal, Skin temperature is warm. Musculoskeletal: Circulation, motion, and sensation intact. Range of motion: intact in all extremities. Historical: - Allergies: 02:17 No Known Allergies; vc1 - Home Meds: 02:15 Eliquis 5 mg Oral tab 1 tab 2 times per day [Active]; metoprolol tartrate 100 mg Oral vc1 tab 1 tab 2 times per day [Active]; lisinopril 20 mg Oral tab 1 tab daily [Active]; amlodipine 10 mg tab 1 tab daily [Active]; - PMHx: 02:15 Atrial fibrillation; Hypertensive disorder; vc1 - PSHx: 02:15 Coronary artery bypass graft; vc1 - Immunization history:: Adult Immunizations up to date, Client reports receiving the 2nd dose of the Covid vaccine, Flu vaccine is not up to date. - Infectious Disease History:: Denies. - Family history:: not pertinent. - Social history:: Smoking status: Patient reports the use of cigarette tobacco products, <1PPD. Screenin:[address] [facility] ED Fall Risk Assessment (Adult) History of falling in the last 3 months, dd2 including since admission No falls in past 3 months (0 pts) Confusion or Disorientation No (0 pts) Intoxicated or Sedated No (0 pts) Impaired Gait No (0 pts) Mobility Assist Device Used No (0 pt) Altered Elimination No (0 pt) Score/Fall Risk Level 0 - 2 = Low Risk Oriented to surroundings, Maintained a safe environment, Educated pt \T\ family on fall prevention, incl call for assistance when getting out of bed, Assessed \T\ reinforced patient's understanding of fall precautions, Hourly rounding (assess needs \T\ fall precautionary measures) done. Abuse screen: Denies threats or abuse. Nutritional screening: No deficits noted. Tuberculosis screening: No symptoms or risk factors identified. Assessment: 02:15 General: Appears uncomfortable, Behavior is calm, cooperative, appropriate for age. dd2 Pain: Denies pain. Pain does not radiate. Quality of pain is described as PT REPORTS PRESSURE ONLY, NO PAIN. Neuro: Level of Consciousness is awake, alert, obeys commands, Oriented to person, place, time, situation, Appropriate for age. Cardiovascular: Reports CHEST PRESSURE Heart tones S1 S2 present Patient's skin is warm and dry. Rhythm is sinus rhythm with unifocal PVCs. Respiratory: Airway is patent Respiratory effort is even, unlabored, Respiratory pattern is regular, symmetrical, Breath sounds are clear bilaterally. GI: No deficits noted. No signs and/or symptoms were reported involving the gastrointestinal system. Abdomen is non-distended, Abd is soft and non tender X 4 quads. : No deficits noted. No signs and/or symptoms were reported regarding the genitourinary system. EENT: No deficits noted. No signs and/or symptoms were reported regarding the EENT system. Derm: No deficits noted. No signs and/or symptoms reported regarding the dermatologic system. Musculoskeletal: No deficits noted. No signs and/or symptoms reported regarding the musculoskeletal system. Circulation, motion, and sensation intact. Range of motion: intact in all extremities. Vital Signs: 01:47 BP 178 / 114; Pulse 79; Resp 16; Pulse Ox 100% ; Weight 77 kg; Height 6 ft. 0 in. ; vc1 02:22 BP 147 / 104; Pulse 81; Resp 16; Pulse Ox 100% on R/A; dd2 03:10 BP 154 / 103; Pulse 76; Resp 16; Pulse Ox 100% ; dd2 04:55 BP 146 / 96; Pulse 74; Resp 17; Pulse Ox 100% ; dd2 01:47 Body Mass Index 23.02 (77.00 kg, 182.88 cm) vc1 [place] Coma Score: 02:10 Eye Response: spontaneous(4). Motor Response: obeys commands(6). Verbal Response: dd2 oriented(5). Total: 15. ED Course: 01:25 Patient arrived in ED. gm2 01:25 Fausto Haque MD is Attending Physician. rt 02:09 ALBERT MELARA, JOHNSON is Primary Nurse. dd2 02:09 No provider procedures requiring assistance completed. Inserted saline lock: 20 gauge dd2 in right antecubital area, using aseptic technique. Flushed with 10 mL NS. 02:10 Initial lab(s) drawn, by me, sent to lab. EKG done, by ED staff, reviewed by Fausto Haque MD. Inserted saline lock: 20 gauge in left antecubital area, using aseptic technique. Blood collected. Flushed with 10 mL NS. 02:10 Patient has correct armband on for positive identification. Bed in low position. Call dd2 light in reach. Side rails up X 1. Client placed on continuous cardiac and pulse oximetry monitoring. NIBP monitoring applied. desk monitor on. Door closed. Noise minimized. Pillow given. Verbal reassurance given. 02:11 Basic Metabolic Panel Sent. lg3 02:11 CBC with Diff Sent. lg3 02:11 LFT's Sent. lg3 02:11 Magnesium Sent. lg3 02:11 NT PRO-BNP Sent. lg3 02:11 PT-INR Sent. lg3 02:11 Troponin HS Sent. lg3 02:15 Triage completed. vc1 02:15 Patient maintains SpO2 saturation greater than 95% on room air. dd2 02:15 Provided Education on: CALL LIGHT, MEDICATION, RESULT TIMES, LABS. dd2 02:29 XRAY Chest (1 view) In Process Unspecified. EDMS 03:35 Prince Alcantara MD is Hospitalizing Provider. rt 05:42 Patient admitted, IV remains in place. dd2 Administered Medications: 02:06 Not Given (Duplicate Order): aspirinchewable tablet 243 mg PO once; 81 mg tablets x 3 rt 02:11 Drug: Aspirin PO Chewable Tablet 324 mg PO once; 81 mg tablets x 4 Route: PO; lg3 02:41 Follow up: Response: No adverse reaction dd2 02:11 Drug: Nitroglycerin Sublingual 0.4 mg Sublingual once; every five minute if needed x3 lg3 Route: Sublingual; 02:41 Follow up: Response: No adverse reaction dd2 03:58 Drug: Potassium PO Effervescent Tablet 50 mEq PO once; dissolve in 4 ounces of water or lg3 juice Route: PO; 04:28 Follow up: Response: No adverse reaction dd2 03:58 Drug: Potassium Chloride IV 40 mEq IV at calculated rate once; administer over 4 hours lg3 Route: IV; Rate: calculated rate; Site: right antecubital; 04:13 Follow up: Response: No adverse reaction dd2 05:42 Follow up: IV Status: Infusion continued upon admission dd2 03:58 Drug: Magnesium Sulfate IVPB 2 grams IVPB once over 1 hrs Route: IVPB; Infused Over: 1 lg3 hrs; Site: left antecubital; 04:13 Follow up: Response: No adverse reaction dd2 04:56 Follow up: IV Status: Completed infusion; IV Intake: 50ml dd2 Medication: 02:10 VIS not applicable for this client. dd2 Intake: 04:56 IV: 50ml; Total: 50ml. dd2 Outcome: 03:35 Decision to Hospitalize by Provider. rt 05:42 Admitted to Med/surg accompanied by tech, via stretcher, with chart, dd2 05:42 Condition: stable 05:42 Instructed on the need for admit, 05:47 Patient left the ED. dd2 Signatures: Dispatcher [employer] EDMS Lexie Swann RN RN lg3 Sandra Hurd RN RN vc1 Fausto Haque MD MD rt Lorie Chaparro gm2 ALBERT MELARA RN RN dd2
--- NOTE | 2024-05-05 03:36 | EDPHYS ---
Physician Documentation [facility] Name: Marcial Ritter Jr Age: 58 yrs Sex: Male : 1965 Arrival Date: 05/05/2024 Time: 01:22 Bed 8 Private MD: ED Physician Fausto Haque HPI: 05/05 02:12 This 58 yrs old Male presents to ER via Unassigned with complaints of Chest Pressure, rt Dizziness. 02:12 Patient with previous history of 5 vessel bypass presents to the ED with a chest rt pressure, shortness of breath, dizziness for the past 10 hours. Patient denies aggravating or alleviating factors. Denies other acute complaints, symptoms are moderate in severity, no other aggravating or alleviating factors.. Historical: - Allergies: 02:17 No Known Allergies; vc1 - Home Meds: 02:15 Eliquis 5 mg Oral tab 1 tab 2 times per day [Active]; metoprolol tartrate 100 mg Oral vc1 tab 1 tab 2 times per day [Active]; lisinopril 20 mg Oral tab 1 tab daily [Active]; amlodipine 10 mg tab 1 tab daily [Active]; - PMHx: 02:15 Atrial fibrillation; Hypertensive disorder; vc1 - PSHx: 02:15 Coronary artery bypass graft; vc1 - Immunization history:: Adult Immunizations up to date, Client reports receiving the 2nd dose of the Covid vaccine, Flu vaccine is not up to date. - Infectious Disease History:: Denies. - Family history:: not pertinent. - Social history:: Smoking status: Patient reports the use of cigarette tobacco products, <1PPD. ROS: 02:12 Cardiovascular: Positive for chest pain, Negative for edema, rt 02:12 Respiratory: Positive for shortness of breath, Negative for cough, 02:24 Constitutional: Negative for fever, chills, and weight loss, Abdomen/GI: Negative for rt abdominal pain, nausea, vomiting, diarrhea, and constipation, MS/Extremity: Negative for injury and deformity, Skin: Negative for injury, rash, and discoloration, Neuro: Negative for headache, weakness, numbness, tingling, and seizure, Exam: 02:24 Constitutional: This is a well developed, well nourished patient who is awake, alert, rt and in no acute distress. Head/Face: Normocephalic, atraumatic. Chest/axilla: Normal chest wall appearance and motion. Nontender with no deformity. No lesions are appreciated. Cardiovascular: Regular rate and rhythm with a normal S1 and S2. No gallops, murmurs, or rubs. Normal PMI, no JVD. No pulse deficits. Respiratory: Lungs have equal breath sounds bilaterally, clear to auscultation and percussion. No rales, rhonchi or wheezes noted. No increased work of breathing, no retractions or nasal flaring. Abdomen/GI: Soft, non-tender, with normal bowel sounds. No distension or tympany. No guarding or rebound. No evidence of tenderness throughout. MS/ Extremity: Pulses equal, no cyanosis. Neurovascular intact. Full, normal range of motion. Neuro: Awake and alert, GCS 15, oriented to person, place, time, and situation. Cranial nerves II-XII grossly intact. Motor strength 5/5 in all extremities. Sensory grossly intact. Cerebellar exam normal. Normal gait. 02:24 ECG was reviewed by the Attending Physician. Vital Signs: 01:47 BP 178 / 114; Pulse 79; Resp 16; Pulse Ox 100% ; Weight 77 kg; Height 6 ft. 0 in. ; vc1 02:22 BP 147 / 104; Pulse 81; Resp 16; Pulse Ox 100% on R/A; dd2 03:10 BP 154 / 103; Pulse 76; Resp 16; Pulse Ox 100% ; dd2 04:55 BP 146 / 96; Pulse 74; Resp 17; Pulse Ox 100% ; dd2 01:47 Body Mass Index 23.02 (77.00 kg, 182.88 cm) vc1 [place] Coma Score: 02:10 Eye Response: spontaneous(4). Motor Response: obeys commands(6). Verbal Response: dd2 oriented(5). Total: 15. MDM: 01:51 Medical Screening Exam initiated rt 03:33 Differential diagnosis: ACS, CAD, nonspecific chest pain, pneumonia. HEART Score: rt History: Highly Suspicious (2), ECG: Non specific repolarization disturbance / LBTB / PM (1), Age: > 45 and < 65 years (1), Risk Factors: > or = 3 Risk factors for atherosclerotic disease (2), Troponin: < or = 1 x Normal Limit (0), Total Score = 6. The patient was given aspirin in the Emergency Department. Data reviewed: vital signs, nurses notes, lab test result(s), EKG, radiologic studies. Consideration of Admission/Observation Patient was admitted/placed on observation. Management of patient was discussed with the following: Hospitalist: Agrees to admit. I considered the following discharge prescriptions or medication management in the emergency department Medications were administered in the Emergency Department. See MAR. Independent interpretation of the following test(s) in the Emergency Department X-Ray: My interpretation is No pneumonia seen on interpretation of x-ray images. Test considered but Not performed: CT: Low suspicion for pulmonary embolism, CT angiogram not indicated. Care significantly affected by the following chronic conditions: Coronary artery disease. Counseling: I had a detailed discussion with the patient and/or guardian regarding the historical points, exam findings, and any diagnostic results supporting the discharge/admit diagnosis, lab results, radiology results, the need for further work-up and treatment in the hospital. Response to treatment: the patient's symptoms have markedly improved after treatment. 05/05 02:01 Order name: Basic Metabolic Panel; Complete Time: 03:35 rt 05/05 02:01 Order name: CBC with Diff; Complete Time: 04:02 rt 05/05 02:01 Order name: LFT's; Complete Time: 03:35 rt 05/05 02:01 Order name: Magnesium; Complete Time: 03:35 rt 05/05 02:01 Order name: NT PRO-BNP; Complete Time: 03:35 rt 05/05 02:01 Order name: PT-INR; Complete Time: 02:48 rt 05/05 02:01 Order name: Troponin HS; Complete Time: 03:35 rt 05/05 02:01 Order name: Ptt, Activated; Complete Time: 02:48 rt 05/05 02:31 Order name: CBC Smear Scan; Complete Time: 04:02 EDAZ 05/05 04:20 Order name: Lipid Profile [facility] 05/05 04:20 Order name: Lipid Profile [facility] 05/05 04:20 Order name: Troponin High Sensitivity [facility] 05/05 04:20 Order name: Troponin High Sensitivity [facility] 05/05 04:20 Order name: Troponin High Sensitivity [facility] 05/05 04:20 Order name: Troponin High Sensitivity [facility] 05/05 04:20 Order name: Troponin High Sensitivity [facility] 05/05 02:01 Order name: XRAY Chest (1 view) rt 05/05 04:20 Order name: Echo with Doppler EDMS 05/05 02:01 Order name: EKG; Complete Time: 02:02 rt 05/05 04:20 Order name: CONS Physician Consult EDMS 05/05 02:01 Order name: Cardiac monitoring; Complete Time: 02:11 rt 05/05 02:01 Order name: EKG - Nurse/Tech; Complete Time: 02:11 rt 05/05 02:01 Order name: IV Saline Lock; Complete Time: 02:11 rt 05/05 02:01 Order name: Labs collected and sent; Complete Time: 02:11 rt 05/05 02:01 Order name: O2 Per Protocol; Complete Time: 02:11 rt 05/05 02:01 Order name: O2 Sat Monitoring; Complete Time: 02:11 rt EC:24 Rate is 76 beats/min. Rhythm is regular, Normal Sinus Rhythm with Occasional PVCs. QRS rt Waves is Normal. RI interval is normal. QRS interval is normal. QT interval is normal. No Q waves. Clinical impression: NSR w/ Non-specific ST/T Changes. Administered Medications: 02:06 Not Given (Duplicate Order): aspirinchewable tablet 243 mg PO once; 81 mg tablets x 3 rt 02:11 Drug: Aspirin PO Chewable Tablet 324 mg PO once; 81 mg tablets x 4 Route: PO; lg3 02:41 Follow up: Response: No adverse reaction dd2 02:11 Drug: Nitroglycerin Sublingual 0.4 mg Sublingual once; every five minute if needed x3 lg3 Route: Sublingual; 02:41 Follow up: Response: No adverse reaction dd2 03:58 Drug: Potassium PO Effervescent Tablet 50 mEq PO once; dissolve in 4 ounces of water or lg3 juice Route: PO; 04:28 Follow up: Response: No adverse reaction dd2 03:58 Drug: Potassium Chloride IV 40 mEq IV at calculated rate once; administer over 4 hours lg3 Route: IV; Rate: calculated rate; Site: right antecubital; 04:13 Follow up: Response: No adverse reaction dd2 05:42 Follow up: IV Status: Infusion continued upon admission dd2 03:58 Drug: Magnesium Sulfate IVPB 2 grams IVPB once over 1 hrs Route: IVPB; Infused Over: 1 lg3 hrs; Site: left antecubital; 04:13 Follow up: Response: No adverse reaction dd2 04:56 Follow up: IV Status: Completed infusion; IV Intake: 50ml dd2 Disposition Summary: 05/05/24 03:35 Hospitalization Ordered Notes: Hospitalization Status: Observation rt Provider: Prince Quinton rt Location: Telemetry/MedSurg (observation) rt Condition: Fair rt Problem: new rt Symptoms: have improved rt Bed/Room Type: Standard rt Room Assignment: 221(05/05/24 04:29) rv1 Diagnosis - Chest pain, unspecified rt - Hypokalemia rt Forms: - Medication Reconciliation Form rt - SBAR form rt - Leadership Thank You Letter rt Signatures: Dispatcher [employer] Lexie Galeas RN RN lg3 Sandra Hurd RN RN vc1 Fausto Haque MD MD rt Vivien Lyons rv1 ALBERT MELARA RN dd2 Corrections: (The following items were deleted from the chart) : 03:35 rt rv1
[2024-05-05] MEDS ORDERED: POTASSIUM 25 MEQ EFFERV TAB ONE (03:46)
[2024-05-05] MEDS ORDERED: NA CHLORIDE 0.9% 1,000 ML ONE (03:46)
[2024-05-05] MEDS ORDERED: KCL 20 MEQ/100 mL IVPB 200 ML IV ONE (03:47)
[2024-05-05] MEDS ORDERED: Magnesium Sulfate 2gm IVPB 2 G/50 ML BAG IV ONE (03:47)
[2024-05-05 03:48] LABS: Anisocytosis 1+; Blood Morphology Comment NOTED (NOT SEEN); Macrocytosis 1+; Platelet Estimate ADEQ; White Blood Cell Scan OK (OK)
[2024-05-05] MEDS ORDERED: NITROGLYCERIN 0.4 MG/TAB SL PRN (04:15)
[2024-05-05] MEDS ORDERED: MORPHINE 4 MG/ML SYR IV PRN (04:15)
[2024-05-05] MEDS ORDERED: NA CHLORIDE 0.9% 250 ML ONE (04:45)
--- NOTE | 2024-05-05 04:46 | P.HP ---
Certification for Inpatient Patient admitted to: Observation With expected LOS: <2 Midnights Practitioner: I am a practitioner with admitting privileges, knowledge of patient current condition, hospital course, and medical plan of care. Services: Services provided to patient in accordance with Admission requirements found in Title 42 Section 412.3 of the Code of Federal Regulations Patient History Date of Service: 05/05/24 Reason for admission: chest pain History of Present Illness: Patient is a 58-year-old male with a past medical history of atrial fibrillation, coronary disease status post CABG in the past. He presented to the ER complaining of chest pressure. Patient states that he was at home watching TV when his symptoms started. Chest pain is nonradiating, nonexertional. He denies any lower extremity edema. Patient arrived in the ER slightly hypertensive with SBP in the 150s. Basic workup shows low potassium and low magnesium. His first troponin is normal. EKG shows PVCs and diffuse T wave inversions V1-V6. Allergies No Known Allergies Allergy (Verified 02/05/23 12:58) Home Medications: Aspirin [Aspirin EC 81 MG] 81 mg PO DAILY 07/25/22 Omeprazole Magnesium [Prilosec Otc] 20 mg PO DAILY 06/19/23 Amlodipine [Norvasc*] 5 mg PO DAILY #30 tab 06/22/23 Apixaban [Eliquis] 5 mg PO BID #60 tab 06/22/23 Furosemide [Lasix*] 20 mg PO BIDL #60 tab 06/22/23 Sotalol HCl [Betapace*] 80 mg PO BID 6AM 6PM #60 tab 06/22/23 Thiamine HCl [Vitamin B-1*] 100 mg PO DAILY #30 tab 06/22/23 Atorvastatin Calcium [Lipitor] 40 mg PO BEDTIME 10/29/23 Multivit,Ther Iron,Ca,FA & Min [Centrum Tablet*] 1 tab PO DAILY 30 Days #30 tab 10/31/23 Nicotine [Nicoderm*] 14 mg TD DAILY 42 Days #42 patch 10/31/23 - Past Medical/Surgical History Diabetic: No -: HTN -: Nicotine dependence -: HLD -: Alcohol abuse -: CAD -: anemia -: hypomagnesium -: CABG Psychosocial/ Personal History: Lives at home with his . Drinks 4-5 drinks (liquor) nightly - Family History Mother -: Hypertension, Diabetes Father -: Heart disease, Hypertension - Social History Alcohol use: Yes CD- Drugs: No Caffeine use: Yes Physical Examination - Physical Exam General: Acute distress HEENT: Atraumatic, Normocephalic Respiratory: Clear to auscultation bilaterally, Normal air movement Cardiovascular: No edema, Normal pulses, Regular rate/rhythm, Normal S1 S2, Other (sternotomy scar) Neurological: Normal speech - Studies Laboratory Data (last 24 hrs) 05/05/24 05/05/24 05/05/24 02:04 02:04 02:04 WBC 7.50 Hgb 12.9 L Hct 37.1 L Plt Count 213 PT 11.3 INR 1.01 APTT 32.0 Sodium 138 Potassium 2.6 L* BUN 9 Creatinine 1.06 Glucose 102 Magnesium 1.2 L Total Bilirubin 0.7 AST 19 ALT 18 Alkaline Phosphatase 104 Assessment and Plan - Problems (Diagnosis) (1) Chest pain Current Visit: Yes Status: Acute (2) S/P CABG x 5 Current Visit: Yes Status: Acute (3) Atrial fibrillation Current Visit: No Status: Acute (4) Dizziness Current Visit: No Status: Acute (5) Hypomagnesemia Current Visit: Yes Status: Acute (6) Hypokalemia Current Visit: Yes Status: Acute - Plan Assessment This is a 58-year-old male with a history of atrial fibrillation and coronary disease status post CABG. He is being admitted for ACS after he presented with chest pressure. His first troponin is within normal limits, EKG with PVCs. Electrolytes shows low magnesium and low potassium. Is currently undergoing electrolyte repletion. Chest pain Coronary artery disease status post CABG Atrial fibrillation Hypertension Dizziness Hypokalemia Hypomagnesemia Plan: Admit under observation with telemetry Replete electrolytes including potassium and magnesium Recheck levels afterwards 2D echo Resume home dose of furosemide and amlodipine for blood pressure control Patient can also be resumed on aspirin and atorvastatin As needed nitroglycerin for chest pain He will benefit from cardiology consult given he is high risk DVT prophylaxis PT/OT - Advance Directives Does patient have a Living Will: No Does patient have a Durable POA for Healthcare: No
--- NOTE | 2024-05-05 05:34 | RAD REPORT ---
EXAM DESCRIPTION: Chest Single View CLINICAL HISTORY: CHEST PAIN COMPARISON: None TECHNIQUE: Single AP view of the chest. FINDINGS: Median sternotomy changes. Lung volumes adequate. Cardiac silhouette is normal in size. No pneumothorax. No large pleural effusion. No focal consolidation. No acute bony finding. Chronic appearing left-sided rib fracture deformities. IMPRESSION: No acute cardiopulmonary findings. Electronically signed by: Yobani Tristan MD 05/05/2024 02:38 AM [facility] Z9 Due to temporary technical issues with the PACS/Everypoint reporting system, reports are being nita d by the in-house radiologist without review as a courtesy to ensure prompt reporting the interpreting radiologist is fully responsible for the content of the report. Transcribed Date/Time: 05/05/2024 5:34 AM
[2024-05-05 06:25] LABS: Anion Gap 7.5 mEq/L (5.0-15.0); Potassium 3.5 mEq/L (3.5-5.1)
[2024-05-05 06:29] VITALS: BMI 21.8
[2024-05-05 06:29] LABS: Troponin High Sensitivity 15.1 pg/mL (<58.9)
[2024-05-05] MEDS: AMLODIPINE 10 MG TAB PO SCH (06:33)
[2024-05-05] MEDS: SOTALOL HCL 80 MG TAB PO SCH (06:33)
[2024-05-05] MEDS: FLU (Fluarix Triv) TS24-25(6MOS UP)/PF 45 MCG/0.5 ML Syringe IM ONE (07:30)
[2024-05-05] MEDS: FUROSEMIDE 20 MG TABLET PO SCH (08:22)
[2024-05-05] MEDS: ASPIRIN EC 81 MG TAB PO SCH (08:22)
[2024-05-05] MEDS ORDERED: APIXABAN 5 MG TABLET PO SCH (09:00)
--- NOTE | 2024-05-05 10:49 | P.CNS ---
Date of Consult: 05/05/24 Chief Complaint: chest pain History of Present Illness: Patient with PMH of CAD s/p CABG x 5 per patient back in 2019, presented with worsening angina that has been going on for months, denies any other cardiac symptoms, chest pain yesterday lasted all day. Allergies No Known Allergies Allergy (Verified 05/05/24 05:54) Home medications list reviewed: Yes Home Medications: Aspirin [Aspirin EC 81 MG] 81 mg PO DAILY 07/25/22 Omeprazole Magnesium [Prilosec Otc] 20 mg PO DAILY 06/19/23 Amlodipine [Norvasc*] 5 mg PO DAILY #30 tab 06/22/23 Apixaban [Eliquis] 5 mg PO BID #60 tab 06/22/23 Furosemide [Lasix*] 20 mg PO BIDL #60 tab 06/22/23 Sotalol HCl [Betapace*] 80 mg PO BID 6AM 6PM #60 tab 06/22/23 Atorvastatin Calcium [Lipitor] 40 mg PO DAILY 10/29/23 Multivit,Ther Iron,Ca,FA & Min [Centrum Tablet*] 1 tab PO DAILY 30 Days #30 tab 10/31/23 Nicotine [Nicoderm*] 14 mg TD DAILY 42 Days #42 patch 10/31/23 - Past Medical/Surgical History Diabetic: No -: HTN -: Nicotine dependence -: HLD -: Alcohol abuse -: CAD -: anemia -: hypomagnesium -: CABG Psychosocial/ Personal History: Lives at home with his . Drinks 4-5 drinks ( liquor) nightly - Family History Mother Medical History: Hypertension, Diabetes Father Medical History: Heart disease, Hypertension - Social History Alcohol use: Yes CD- Drugs: No Caffeine use: No Place of Residence: Home Review of Systems 10-point ROS is otherwise unremarkable Physical Examination Temp Pulse Resp BP Pulse Ox 98.4 F 67 16 145/82 H 97 05/05/24 08:00 05/05/24 08:22 05/05/24 08:00 05/05/24 08:22 05/05/24 08:00 General: Alert, In no apparent distress HEENT: Atraumatic, PERRLA, Mucous membr. moist/pink, EOMI, Sclerae nonicteric Neck: Supple, 2+ carotid pulse no bruit, No LAD, Without JVD or thyroid abnormality Respiratory: Clear to auscultation bilaterally, Normal air movement Cardiovascular: Regular rate/rhythm, Normal S1 S2 Gastrointestinal: Normal bowel sounds, No tenderness Musculoskeletal: No tenderness Integumentary: No rashes Neurological: Normal gait, Normal speech, Normal tone, Normal affect Lymphatics: No axilla or inguinal lymphadenopathy Laboratory Data (last 24 hrs) 05/05/24 05/05/24 05/05/24 02:04 02:04 02:04 WBC 7.50 Hgb 12.9 L Hct 37.1 L Plt Count 213 PT 11.3 INR 1.01 APTT 32.0 Sodium 138 Potassium 2.6 L* BUN 9 Creatinine 1.06 Glucose 102 Magnesium 1.2 L Total Bilirubin 0.7 AST 19 ALT 18 Alkaline Phosphatase 104 - Problems (1) HTN (hypertension) Current Visit: Yes Status: Acute Plan: continue Norvasc 5 mg daily continue to monitor (2) Chest pain Current Visit: Yes Status: Acute Plan: concern for angina, patient with history of CAD s/p CABG x5 NPO for coronary angiogram. ASA 81 mg daily Lipitor 40 mg daily (3) Atrial fibrillation Current Visit: No Status: Acute Plan: Hold Eliquis for now for coronary angiogram Continue Sotalol 80 mg po BID
[2024-05-05] MEDS: NICOTINE 21 MG/PAT TD SCH (12:18)
[2024-05-05] MEDS: ATORVASTATIN 80 MG TAB PO SCH (19:51)
[2024-05-05] MEDS: ENOXAPARIN 80 MG/0.8 ML SQ SCH (19:52)
[2024-05-06] MEDS: NA CHLORIDE 0.9% 500 ML ONE (07:42)
[2024-05-06] MEDS ORDERED: HEPA 1000U/500MLS 2,000 UNIT/1,000 ML BAG IV ONE (08:09)
[2024-05-06] MEDS ORDERED: HEPARIN 10,000 UNIT/10 ML VIAL IV ONE (08:09)
[2024-05-06] MEDS ORDERED: ATROPINE SULF 1 MG/10 ML SYR IV ONE (08:10)
[2024-05-06] MEDS ORDERED: LIDOCAINE 1% 20 ML MDV ONE (08:10)
[2024-05-06] MEDS ORDERED: HEPARIN 5000 UNIT/ML 1 ML VIAL ONE (08:10)
[2024-05-06] MEDS ORDERED: MIDAZOLAM HCL 2 MG/2 ML INJ ONE (08:13)
[2024-05-06] MEDS ORDERED: FENTANYL CITR 100 MCG/2 ML ONE (08:13)
[2024-05-06 09:42] VITALS: O2SAT 94
--- NOTE | 2024-05-06 10:40 | P.PN ---
Subjective Date of Service: 05/06/24 Chief Complaint: chest pain Subjective: No new changes, No C/O voiced, Tolerating diet, Ambulating, Improving Review of Systems 10-point ROS is otherwise unremarkable Physical Examination - Vital Signs Temperature: 97.3 F Blood Pressure: 114/76 Pulse: 54 Respirations: 17 Pulse Ox (%): 100 - Physical Exam General: Alert, In no apparent distress HEENT: Atraumatic, PERRLA, EOMI Neck: Supple, JVD not distended Respiratory: Clear to auscultation bilaterally, Normal air movement Cardiovascular: Regular rate/rhythm, Normal S1 S2 Gastrointestinal: Normal bowel sounds, No tenderness Musculoskeletal: No tenderness Integumentary: No rashes Neurological: Normal speech, Normal tone, Normal affect Lymphatics: No axilla or inguinal lymphadenopathy - Studies Medications List Reviewed: Yes Assessment And Plan - Current Problems (Diagnosis) (1) HTN (hypertension) Current Visit: Yes Status: Acute Plan: continue Norvasc 5 mg daily continue to monitor (2) Chest pain Current Visit: Yes Status: Acute Plan: Coronary angiogram done and shows significant [place] CAD with patient STEWART-LAD, SVG-OM1, SVG-D, SVG-RPDA with occluded SVG-OM2. ASA 81 mg daily Lipitor 40 mg daily (3) Atrial fibrillation Current Visit: No Status: Acute Plan: Continue Eliquis 5 mg po BID Continue Sotalol 80 mg po BID
[2024-05-06 10:54] VITALS: BP 139/79
[2024-05-06] MEDS ORDERED: NICOTINE 21 MG/PAT TD SCH (11:45)
[2024-05-06 12:32] VITALS: TEMP 96.8
--- NOTE | 2024-05-06 13:35 | P.DS ---
Admission Date: 05/05/24 Discharge Date: 05/06/24 Disposition: ROUTINE DISCHARGE Discharge Condition: GOOD Reason for Admission: chest pain Consultations: Cardiology Procedures: [facility] 05/06 Brief History of Present Illness: Patient is a 58-year-old male with a past medical history of atrial fibrillation, coronary disease status post CABG in the past. He presented to the ER complaining of chest pressure. Patient states that he was at home watching TV when his symptoms started. Chest pain is nonradiating, nonexertional. He denies any lower extremity edema. Patient arrived in the ER slightly hypertensive with SBP in the 150s. Basic workup shows low potassium and low magnesium. His first troponin is normal. EKG shows PVCs and diffuse T wave inversions V1-V6. Hospital Course: Chest pain Coronary artery disease status post CABG Atrial fibrillation Hypertension Dizziness Hypokalemia Hypomagnesemia Patient was admitted to the hospital for chest pain. He described pain lasting for 11 to 12 hours, described as pressure concerning for unstable angina. He underwent coronary angiogram on 05/06 with results as follows Coronary angiogram done and shows significant [place] CAD with patient STEWART-LAD, SVG-OM1, SVG-D, SVG-RPDA with occluded SVG-OM2. Cardiology recommends medical management, continue home medications including Eliquis, sotalol, aspirin, Lipitor, Norvasc and follow-up with cardiology outpatient. Continue home medications as previously prescribed Follow-up with cardiology and your primary care doctor in 1 to 2 weeks Vital Signs/Physical Exam: Temp Pulse Resp BP Pulse Ox 96.8 F 54 16 139/79 96 05/06/24 12:00 05/06/24 12:00 05/06/24 12:00 05/06/24 12:00 05/06/24 12:00 General: Alert, In no apparent distress, Oriented x3 HEENT: Atraumatic, PERRLA Neck: Supple, JVD not distended Respiratory: Clear to auscultation bilaterally, Normal air movement Cardiovascular: Regular rate/rhythm, Normal S1 S2 Gastrointestinal: Normal bowel sounds, No tenderness Musculoskeletal: No tenderness Integumentary: No rashes Neurological: Normal speech, Normal tone, Normal affect Laboratory Data at Discharge: WBC 7.50 thou/uL (4.3-10.9) 05/05/24 02:04 Hgb 12.9 g/dL (13.6-17.9) L 05/05/24 02:04 Hct 37.1 % (39.6-49.0) L 05/05/24 02:04 Plt Count 213 thou/uL (152-406) 05/05/24 02:04 PT 11.3 SECONDS (9.4-12.5) 05/05/24 02:04 INR 1.01 05/05/24 02:04 APTT 32.0 SECONDS (24.3-36.9) 05/05/24 02:04 Sodium 137 mEq/L (136-145) 05/05/24 05:52 Potassium 3.5 mEq/L (3.5-5.1) D 05/05/24 05:52 BUN 9 mg/dL (7-18) 05/05/24 05:52 Creatinine 1.04 mg/dL (0.70-1.30) 05/05/24 05:52 Glucose 118 mg/dL (74-106) H 05/05/24 05:52 Magnesium 2.0 mg/dL (1.6-2.4) 05/05/24 05:52 Total Bilirubin 0.7 mg/dL (0.2-1.0) 05/05/24 02:04 AST 19 U/L (15-37) 05/05/24 02:04 ALT 18 U/L (16-61) 05/05/24 02:04 Alkaline Phosphatase 104 U/L (45-117) 05/05/24 02:04 Triglycerides 131 mg/dL (<150) 05/05/24 05:52 Cholesterol 205 mg/dL (<200) H 05/05/24 05:52 HDL Cholesterol 56 mg/dL (40-60) 05/05/24 05:52 Cholesterol/HDL Ratio 3.66 05/05/24 05:52 Home Medications: Aspirin [Aspirin EC 81 MG] 81 mg PO DAILY 07/25/22 Omeprazole Magnesium [Prilosec Otc] 20 mg PO DAILY 06/19/23 Amlodipine [Norvasc*] 5 mg PO DAILY #30 tab 06/22/23 Apixaban [Eliquis] 5 mg PO BID #60 tab 06/22/23 Furosemide [Lasix*] 20 mg PO BIDL #60 tab 06/22/23 Sotalol HCl [Betapace*] 80 mg PO BID 6AM 6PM #60 tab 06/22/23 Atorvastatin Calcium [Lipitor] 40 mg PO DAILY 10/29/23 Multivit,Ther Iron,Ca,FA & Min [Centrum Tablet*] 1 tab PO DAILY 30 Days #30 tab 10/31/23 Nicotine [Nicoderm*] 14 mg TD DAILY 42 Days #42 patch 10/31/23 Physician Discharge Instructions: Patient was admitted to the hospital for chest pain. He described pain lasting for 11 to 12 hours, described as pressure concerning for unstable angina. He underwent coronary angiogram on 05/06 with results as follows Coronary angiogram done and shows significant [place] CAD with patient STEWART-LAD, SVG-OM1, SVG-D, SVG-RPDA with occluded SVG-OM2. Cardiology recommends medical management, continue home medications including Eliquis, sotalol, aspirin, Lipitor, Norvasc and follow-up with cardiology outpatient. Continue home medications as previously prescribed Follow-up with cardiology and your primary care doctor in 1 to 2 weeks Diet: AHA Activity: Ad kirk Followup: Draryn Paul MD [Primary Care Provider] - 1 Week Aly Mckeon MD [ACTIVE - CAN ADMIT] - 1-2 Weeks Time spent managing pt's care (in minutes): 35
--- NOTE | 2024-05-06 22:08 | OP ---
Date of Procedure: 05/06/2024 Surgeon: Amilcar Armenta Procedure Performed: Selective coronary angiogram of bypass graft. Indication For Procedure: Unstable angina; history of CAD, status post CABG. Complications: None. Estimated Blood Loss: Less than 50 cc. Access: Right common femoral artery, closed by Mynx device. Sedation Time: 30 minutes with 2 of Versed and 75 of fentanyl. Description Of Procedure: After risks, benefits, and alternatives were explained to the patient, pat ient agreed to proceed with the procedure and signed informed consent. The patient was brought back to the chemical laboratory scientist, prepped and draped in sterile fashion. Time-out was performed. Sedation was admini stered. Next, right common femoral artery access was obtained. A 6-Italian sheath was introduced wit hout any difficulty. JL4 catheter was advanced to the aortic root. Selective angiogram was done jose t was later exchanged with a JR4 catheter for the right coronary angiogram and bypass graft angiogram and that was later exchanged with an MANNY catheter for the STEWART to LAD angiogram. At the end of proc edure, catheter was removed, sheath was removed, Mynx applied, and hemostasis was achieved. The marlyn ent was moved back to recovery in stable condition. Findings: 1.Left main: Normal. 2.LAD: Proximal occluded. 3.Left circ: Proximal occluded. 4.RCA: Proximal occluded. Grafts: 1.STEWART to LAD is patent. 2.SVG to OM1 is patent. 3.SVG to diagonal is patent. 4.SVG to RPDA is patent. 5.SVG to OM2 was occluded. 6.Right common femoral artery got 70% distal edge in-stent restenosis that is calcified. Assessment And Plan: 1.Significant [place] coronary artery disease with patent grafts except occluded saphenous vein graft to obtuse marginal 2. 2.Significant right common femoral artery calcified disease at the distal edge of right external ricco ac/common femoral artery stent. 3.The plan will be to continue medical management for coronary artery disease. 4.Would refer him back to his vascular surgeon, Dr. To, for right common femoral artery stent in- stent restenosis. MCCRAY/MODL Voice ID: [id number] Report ID: [id number]
--- NOTE | 2024-05-07 11:09 | ECHO ---
HEIGHT: 6 ft 2 in WEIGHT: 170 lb 2 oz DATE OF STUDY: 05/06/[address]: Prince Kia Alcantara MD 2-DIMENSIONAL: YES M.MODE: YES DOPPLER: YES COLOR FLOW: YES TDS: NO PORTABLE: YES DEFINITY: NO BUBBLE STUDY: NO DIAGNOSIS: CHEST PAIN CARDIAC HISTORY: CATHERIZATION: YES SURGERY: NO PROSTHETIC VALVE: NO PACEMAKER: NO MEASUREMENTS (cm) DIASTOLIC (NORMALS) SYSTOLIC (NORMALS) IVSd 1.1 (0.6-1.2) LA Diam 3.0 (1.9-4.0) LVEF 57% LVIDd 4.1 (3.5-5.7) LVIDs 2.9 (2.0-3.5) %FS 30% LVPWd 1.2 (0.6-1.2) Ao Diam 2.7 (2.0-3.7) 2 DIMENSIONAL ASSESSMENT: RIGHT ATRIUM: NORMAL LEFT ATRIUM: NORMAL RIGHT VENTRICLE: NORMAL LEFT VENTRICLE: NORMAL TRICUSPID VALVE: MILD TRICUSPID REGURGITATION MITRAL VALVE: NORMAL PULMONIC VALVE: NORMAL AORTIC VALVE: NORMAL PERICARDIAL EFFUSION: NONE AORTIC ROOT: NORMAL LEFT VENTRICULAR WALL MOTION: NORMAL. DOPPLER/COLOR FLOW: GRADE 1 DIASTOLIC DYSFUNCTION. COMMENTS: 1. NORMAL LEFT VENTRICULAR SYSTOLIC FUNCTION, EJECTION FRACTION 55-60%, NORMAL WALL MOTION. 2. GRADE I DIASTOLIC DYSFUNCTION. 3. MILD TRICUSPID REGURGITATION. TECHNOLOGIST: WHITLEY COURTNEY
--- NOTE | 2024-05-07 11:39 | EKG ---
Test Date: 2024-05-05 Test Time: 02:02:40 Social Services Manager: SAHARA MEASUREMENT RESULTS: Intervals: Rate: 76 TX: 176 QRSD: 102 QT: 446 QTc: 501 Converse: P: -1 TX: 176 QRS: 34 T: 166 INTERPRETIVE STATEMENTS: Sinus rhythm with occasional premature ventricular complexes ST & T wave abnormality, consider inferior ischemia ST & T wave abnormality, consider anterolateral ischemia Prolonged QT Abnormal ECG Compared to ECG 01/16/2024 11:06:26 Ventricular premature complex(es) now present ST (T wave) deviation now present Possible ischemia now present Sinus bradycardia no longer present T-wave abnormality no longer present Electronically Signed On 05-07-24 11:34:46 AIRLINE TICKET AGENT by Amilcar Armenta
== END 2024-05-06 15:09 | disposition home or self-care (01) ==
LOC: ER 01:22 → 2ND 04:15
PROVIDERS: ADMIT Internal Medicine; ATTEND Internal Medicine
DX: I25.110 Atherosclerotic heart disease of native coronary artery with unstable angina pectoris (principal); I25.700 Atherosclerosis of coronary artery bypass graft(s), unspecified, with unstable angina pectoris; I25.82 Chronic total occlusion of coronary artery; T82.856A Stenosis of peripheral vascular stent, initial encounter; I48.91 Unspecified atrial fibrillation; I10 Essential (primary) hypertension; E87.6 Hypokalemia; E83.42 Hypomagnesemia; D64.9 Anemia, unspecified; R42 Dizziness and giddiness; E78.5 Hyperlipidemia, unspecified; F10.10 Alcohol abuse, uncomplicated; F17.210 Nicotine dependence, cigarettes, uncomplicated; Z79.01 Long term (current) use of anticoagulants; Z79.82 Long term (current) use of aspirin; Z79.899 Other long term (current) drug therapy; Z82.49 Family history of ischemic heart disease and other diseases of the circulatory system; Z83.3 Family history of diabetes mellitus
CPT/HCPCS: 93005; 93306; 85025; 80048 ×2; 36415; 83735 ×2; 85610; 80061; 82947; 80076; 85730; 84484 ×3; 83880; 71045; 93455; 76937; 97161; 99285; C1893; Q9966; J3480; J3475; J2003; J2250; J3010; G0378 ×4; J7050; J7040; J7030; C1760; 99152; 99153; J0461; J1644